=== PATIENT | female | born 1955 | race Caucasian/White ===

== ENCOUNTER → 2017-09-09 | Outpatient (CLI) | payer OTHER ==
--- NOTE | 2017-09-09 11:41 | XR ---
EXAMINATION TYPE: XR abdomen 2V DATE OF EXAM: 09/09/2017 COMPARISON: NONE HISTORY: Pain TECHNIQUE: Single supine KUB image of the abdomen is obtained FINDINGS: Small bowel demonstrates no evidence for dilatation or air fluid levels. Gas and fecal material is seen in non-distended colon. No convincing evidence for pneumoperitoneum. No unusual calcifications. The lung bases are clear. The osseous structures are intact. IMPRESSION: 1. Overall nonobstructive bowel gas pattern.
== END | disposition home or self-care (01) ==
LOC: RADXRYALE 11:15
PROVIDERS: ATTEND Physician Assistant Medical
DX: R31.9 Hematuria, unspecified (principal); M54.5 Low back pain
CPT/HCPCS: 74019

== ENCOUNTER 2017-11-11 15:46 | Inpatient (IN) | payer OTHER ==
[2017-11-12 14:14] LABS: Glucose,Whole Blood 58 mg/dL (75-99)
[2017-11-12 14:41] LABS: Glucose,Whole Blood 57 mg/dL (75-99)
[2017-11-12 15:20] LABS: Glucose,Whole Blood 64 mg/dL (75-99)
[2017-11-12] MEDS ORDERED: NALOXONE 0.4 MG/ML 1 ML VIAL IV PRN (15:53)
[2017-11-12] MEDS ORDERED: ONDANSETRON 4 MG/2 ML VIAL IVP PRN (15:53)
[2017-11-12] MEDS ORDERED: LACTATED RINGERS 1,000 ML IV ONE (15:53)
[2017-11-12] MEDS ORDERED: ACETAMINOPHEN TAB 325 MG TAB PO PRN (15:53)
[2017-11-12 16:01] LABS: Glucose,Whole Blood 95 mg/dL (75-99)
[2017-11-12] MEDS: KETOROLAC 30 MG/ML 1 ML VIAL IVP SCH ×2 (16:14→22:38)
[2017-11-12] MEDS ORDERED: Potassium Replacement Protocol 1 EACH MISC MISCELLANE PRN (16:49)
--- NOTE | 2017-11-12 17:18 | P.CNPUL ---
History of Present Illness Consult date: 11/12/17 Reason for consult: chest pain Chief complaint: trauma, rib fracture and hemopneumothorax History of present illness: A 62-year-old female patient was brought in via embolus from [place] for traumatic chest injury and flail chest. The patient was horseback riding and she fell and she sustained a blunt trauma to her chest. CAT scan of the chest abdomen and pelvis was done at [facility] and the visualized tracheal bronchial tree was within normal limits and there was evidence of pulmonary contusion in the right lower lobe and the right middle lobe and there was moderate to large right-sided pneumothorax with moderate to large right-sided pleural effusion possibly a hemothorax. There was some tenderness emphysema tracking along the right hemithorax. There was air distention of the esophagus. Comminuted fracture of the distal right clavicle. Comminuted fracture of the right scapula. Fracture of the posterior right second rib and fracture of the posterior and the lateral and anterior third rib , and fracture of the anterior fourth rib and the lateral fourth rib, and the fracture of the lateral right fifth rib in addition to fractures of the 678 and ninth and 10th and 11th rib. The 12th of was intact. Rest of the abdominal structures were within normal limits. The patient has a cholecystectomy. The patient had a lap band in place. CAT scan of the cervical spine showed no evidence of any fracture. And a computed tomography scan of the head was negative. The patient had a right-sided chest tube inserted and following that she had adequate expansion of the right lung and she was given adequate pain control and she was transferred to our hospital for further care. At this point in time the patient is comfortable on 2 L of oxygen by nasal cannula. Her pain control is through Dilaudid and no cord she is taking Tylenol in addition. She is pulling approximately 7 50 mL on incentive spirometer. Her pain is under good control and scale of 10 she is 2-3. No tachypnea. No tachycardia. No altered mentation. That hemoglobin has also stayed stable. Admission hemoglobin level was 13.4. She has normal renal function. Review of Systems Constitutional: Denies chills, Denies fever Eyes: denies blurred vision, denies bulging eye, denies decreased vision Ears: deny: decreased hearing, ear discharge, earache, tinnitus Ears, nose, mouth and throat: Denies headache, Denies sore throat Cardiovascular: Reports chest pain Respiratory: Reports dyspnea, Denies cough Gastrointestinal: Denies abdominal pain, Denies diarrhea, Denies nausea, Denies vomiting Genitourinary: Reports as per HPI Menstruation: Reports as per HPI Musculoskeletal: Denies myalgias Musculoskeletal: absent: ankle pain, ankle stiffness, ankle swelling Integumentary: Denies pruritus, Denies rash Neurological: Denies numbness, Denies weakness Psychiatric: Reports depression Endocrine: Denies fatigue, Denies weight change Hematologic/Lymphatic: Reports as per HPI Allergic/Immunologic: Reports as per HPI Past Medical History Past Medical History: Fibromyalgia Additional Past Medical History / Comment(s): Depression, fibromyalgia, obesity with a previous that bad and current BMI 33.1 History of Any Multi-Drug Resistant Organisms: None Reported Past Surgical History: Bariatric Surgery, Bladder Surgery, Cholecystectomy, Hernia Repair, Hysterectomy Additional Past Surgical History / Comment(s): bladder suspension, lap band, partial hysterectomy, lasik eye sx, abd hernia, upper dental implant Past Anesthesia/Blood Transfusion Reactions: No Reported Reaction Smoking Status: Never smoker - Past Family History Mother Family Medical History: Cancer Additional Family Medical History / Comment(s): breast cancer Father Family Medical History: No Reported History Additional Family Medical History / Comment(s): when pt was young from a mva Medications and Allergies Home Medications Medication Instructions Recorded Confirmed Type Gabapentin [Neurontin] 300 mg PO BID 11/12/17 11/12/17 History Meloxicam [Mobic] 15 mg PO DAILY 11/12/17 11/12/17 History Ranitidine HCl [Zantac] 75 mg PO DAILY 11/12/17 11/12/17 History Venlafaxine HCl [Effexor] 75 mg PO DAILY 11/12/17 11/12/17 History Allergies Allergy/AdvReac Type Severity Reaction Status Date / Time No Known Allergies Allergy Verified 11/12/17 14:47 Physical Exam Vitals: Vital Signs Temp Pulse Resp BP Pulse Ox 11/12/17 15:30 83 11 L 145/63 98 11/12/17 15:20 85 16 144/68 98 11/12/17 15:10 82 13 131/58 96 11/12/17 15:00 87 14 131/58 97 11/12/17 14:50 85 30 H 131/58 99 11/12/17 14:30 97.4 F L 84 24 131/58 96 Intake and Output 11/12/17 11/12/17 11/12/17 06:59 14:59 22:59 Intake Total 75 Output Total 20 Balance 55 Intake: IV 75 0.9 sodium chloride 75 Output: Chest Tube Drainage 20 Chest Tube Right Lateral 20 Chest Other: # Voids 1 # Bowel Movements 1 Weight 96 kg Gen. appearance, comfortable likely distress. Head exam was generally normal. There was no scleral icterus or corneal arcus. Mucous membranes were moist. Neck was supple and without jugular venous distension, thyromegaly, or carotid bruits. Carotids were easily palpable bilaterally. There was no adenopathy. Lungs sounds are diminished in the right compared to the left. The patient is a right-sided chest tube. There is obvious chest wall deformity on the right. 2 multiple rib fractures. The patient is a right-sided chest tube and the patient has 900 mL of serosanguineous bloody fluid accommodating in the Pleur- evac. Cardiac exam revealed the PMI to be normally situated and sized. The rhythm was regular and no extrasystoles were noted during several minutes of auscultation. The first and second heart sounds were normal and physiologic splitting of the second heart sound was noted. There were no murmurs, rubs, clicks, or gallops. Abdominal exam revealed normal bowel sounds. The abdomen was soft, non-tender, and without masses, organomegaly, or appreciable enlargement of the abdominal aorta. Examination of the extremities revealed easily palpable radial, femoral and pedal pulses. There was no cyanosis, clubbing or edema. The right approximately is placed in a sling. Examination of the skin revealed no evidence of significant rashes, suspicious appearing nevi or other concerning lesions. Neurologic the patient is awake and alert and there is no focal neurological deficit at this point in time. Results - Laboratory Findings Abnormal lab findings: Abnormal Labs 11/12/17 11/12/17 11/12/17 14:13 14:39 15:17 POC Glucose (mg/dL) 58 L 57 L 64 L Assessment and Plan Plan: Assessment 1 traumatic right chest injury post hoarse right accident 2 right sided hemopneumothorax status post right-sided chest tube insertion with successful expansion of the right lung and evacuation of the pleural fluid/ pneumothorax. There is no evidence of any air leak to the right-sided chest tube. There may be an underlying component of pulmonary contusion, right-sided. 3 multilevel right-sided rib fractures extending from the first of the 11th rib. Suspect a component of flail chest due to multilevel rib fractures. 4 right clavicular fracture, comminuted 5 right scapular fracture, comminuted 6 depression 7 fibromyalgia Plan Continue using incentive spirometer. Dilaudid for pain control. Tylenol for pain control. Keep the patient is of oxygen by nasal cannula. Keep the right- sided chest tube in place. Consult cardiothoracic surgery regarding the possibility of fixation of the ribs and the scapula. With the right upper extremity in sling and may need an orthopedic surgery evaluation regarding the right scapular fracture. Hemodynamically stable. We'll obtain blood work. We will continue daily chest x-rays. Lovenox for DVT prophylaxis. We'll continue to follow. Keep the patient ICU for now.
[2017-11-12 17:40] LABS: Glucose,Whole Blood 88 mg/dL (75-99)
[2017-11-12] MEDS: POTASSIUM CHLORIDE ER 20 MEQ TAB.ER PO SCH ×2 (18:30→19:45)
[2017-11-12] MEDS: DEXTROSE 5% IN WATER 1,000 ML IV SCH (18:30)
--- NOTE | 2017-11-12 18:51 | P.GSHP ---
History of Present Illness H&P Date: 11/12/17 Chief Complaint: Right flail chest This is a 62-year-old female who was transferred from [facility]. Patient fell off her horse. She sustained a significant traumatic right chest wall injury. The patient has multiple right rib fractures as well as a right clavicle and scapular fracture the patient also had a hemothorax. She had a chest tube placed at the outside hospital. She was transferred to [facility] to be closer to family. Patient has been stable. She is currently resting in bed. She states her pain is a 3 out of 10. She has a pleural VAC in place which has some bloody drainage. Past Medical History Past Medical History: Fibromyalgia Additional Past Medical History / Comment(s): Depression, fibromyalgia, obesity with a previous that bad and current BMI 33.1 History of Any Multi-Drug Resistant Organisms: None Reported Past Surgical History: Bariatric Surgery, Bladder Surgery, Cholecystectomy, Hernia Repair, Hysterectomy Additional Past Surgical History / Comment(s): bladder suspension, lap band, partial hysterectomy, lasik eye sx, abd hernia, upper dental implant Past Anesthesia/Blood Transfusion Reactions: No Reported Reaction Smoking Status: Never smoker - Past Family History Mother Family Medical History: Cancer Additional Family Medical History / Comment(s): breast cancer Father Family Medical History: No Reported History Additional Family Medical History / Comment(s): when pt was young from a mva Medications and Allergies Home Medications Medication Instructions Recorded Confirmed Type Gabapentin [Neurontin] 300 mg PO BID 11/12/17 11/12/17 History Meloxicam [Mobic] 15 mg PO DAILY 11/12/17 11/12/17 History Ranitidine HCl [Zantac] 75 mg PO DAILY 11/12/17 11/12/17 History Venlafaxine HCl [Effexor] 75 mg PO DAILY 11/12/17 11/12/17 History Allergies Allergy/AdvReac Type Severity Reaction Status Date / Time No Known Allergies Allergy Verified 11/12/17 14:47 Surgical - Exam Vital Signs Temp Pulse Resp BP Pulse Ox 97.4 F L 84 24 131/58 96 11/12/17 14:30 11/12/17 14:30 11/12/17 14:30 11/12/17 14:30 11/12/17 14:30 - General well developed, no distress - Eyes PERRL - ENT normal pinna - Neck no masses - Respiratory Right chest wall pain normal expansion - Cardiovascular Rhythm: regular - Abdomen Abdomen: soft, non tender - Neurologic normal coordination, normal sensation - Musculoskeletal Obvious right clavicle deformity. Results - Labs Abnormal Lab Results - Last 24 Hours (Table) 11/12/17 11/12/17 11/12/17 Range/Units 14:13 14:39 15:17 POC Glucose (mg/dL) 58 L 57 L 64 L (75-99) mg/dL Assessment and Plan Assessment: Status post fall from horse with traumatic right chest wall injury. Patient's multiple right rib fractures. She has a right clavicle and scapular fracture. We will have consultation from orthopedics and cardiothoracic surgery. Dr. Jay febrile illnesses been counseled as well. She'll be closely observed.
--- NOTE | 2017-11-12 19:15 | XR ---
EXAMINATION: XR chest 2V DATE AND TIME: 11/12/2017 6:21 PM ORDERING PROVIDER: Anastacio Mcdowell MD CLINICAL INDICATION: Multiple rib fractures TECHNIQUE: AP X-ray; RPO-rotated. COMPARISON: None. DESCRIPTION: Right chest tube is in place. No pneumothorax. There are decompressed the level right posterior lateral rib fractures, involving these the second th rough seventh ribs. There is a apex cephalad angulated fracture of the right mid clavicle. The sternoclavicular clavicula r and acromioclavicular joints are congruent. Scans bilateral pleural effusions noted bilaterally on the lateral view. Left lung is clear and well-expanded. Cardiac silhouette is mildly enlarged. Aortic silhouette is ectatic. Extrathoracic soft tissues are unremarkable. IMPRESSION: 1. MULTIFOCAL RIGHT RIB FRACTURES. 2. RIGHT MID CLAVICLE FRACTURE.
[2017-11-12 20:01] LABS: Glucose,Whole Blood 102 mg/dL (75-99)
[2017-11-12] MEDS: HYDROcodone/APAP 5-325MG 1 EACH TAB PO PRN (20:15)
[2017-11-12 20:16] LABS: HCT 35.6 % (34.0-46.0); HGB 11.6 gm/dL (11.4-16.0); MCH 29.5 pg (25.0-35.0); MCHC 32.6 g/dL (31.0-37.0); MCV 90.4 fL (80.0-100.0); Mean Platelet Volume 6.8; Platelet Count 147 k/uL (150-450); RBC 3.94 m/uL (3.80-5.40); RDW 14.1 % (11.5-15.5); WBC 10.3 k/uL (3.8-10.6)
[2017-11-12 20:25] LABS: Anion Gap 8 mmol/L; Blood Urea Nitrogen 23 mg/dL (7-17); Calcium 8.5 mg/dL (8.4-10.2); Carbon Dioxide 22 mmol/L (22-30); Chloride 107 mmol/L (98-107); Glucose 102 mg/dL (74-99); Potassium 4.2 mmol/L (3.5-5.1); Sodium 137 mmol/L (137-145)
[2017-11-12] MEDS: DOCUSATE 100 MG CAP PO SCH (20:30)
[2017-11-12 23:41] LABS: Glucose,Whole Blood 126 mg/dL (75-99)
[2017-11-13] MEDS: HYDROcodone/APAP 5-325MG 1 EACH TAB PO PRN ×2 (01:39→07:36)
[2017-11-13 04:22] LABS: Glucose,Whole Blood 106 mg/dL (75-99)
[2017-11-13] MEDS: KETOROLAC 30 MG/ML 1 ML VIAL IVP SCH ×4 (04:38→21:52)
[2017-11-13 05:10] LABS: Basophils % (A) 0 %; Eosinophils # (A) 0.1 k/uL (0-0.7); Eosinophils % (A) 1 %; HGB 10.8 gm/dL (11.4-16.0); Lymphocytes # (A) 0.8 k/uL (1.0-4.8); Lymphocytes % (A) 13 %; MCH 29.3 pg (25.0-35.0); MCHC 33.8 g/dL (31.0-37.0); MCV 86.5 fL (80.0-100.0); Mean Platelet Volume 6.9; Monocytes # (A) 0.3 k/uL (0-1.0); Monocytes % (A) 4 %; Neutrophils # (A) 5.2 k/uL (1.3-7.7); Neutrophils % (A) 81 %; Platelet Count 170 k/uL (150-450); RBC 3.71 m/uL (3.80-5.40); RDW 14.1 % (11.5-15.5); WBC 6.4 k/uL (3.8-10.6)
[2017-11-13 05:17] LABS: ALT 49 U/L (9-52); AST 40 U/L (14-36); Albumin 2.6 g/dL (3.5-5.0); Alkaline Phosphatase 70 U/L (38-126); Anion Gap 4 mmol/L; Blood Urea Nitrogen 24 mg/dL (7-17); Calcium 8.1 mg/dL (8.4-10.2); Carbon Dioxide 23 mmol/L (22-30); Chloride 107 mmol/L (98-107); Glucose 99 mg/dL (74-99); Magnesium 1.9 mg/dL (1.6-2.3); Phosphorus 2.5 mg/dL (2.5-4.5); Sodium 134 mmol/L (137-145); Total Bilirubin 0.3 mg/dL (0.2-1.3); Total Protein 4.7 g/dL (6.3-8.2)
[2017-11-13] MEDS ORDERED: Magnesium Replacement Protocol 1 EACH MISC MISCELLANE PRN (06:59)
--- NOTE | 2017-11-13 07:30 | XR ---
EXAMINATION TYPE: XR chest 1V DATE OF EXAM: 11/13/2017 COMPARISON: 11/12/2017 INDICATION: Pneumothorax, hemothorax TECHNIQUE: Single frontal view of the chest is obtained. FINDINGS: The heart size is normal. The pulmonary vasculature is normal. There is blunting the left costophrenic angle. Right-sided chest tube is present. No pneumothorax is evident. Multiple Right-sided rib fractures are evident. IMPRESSION: 1. Right-sided chest tube is in position. Pneumothorax is not evident at this time. 2. Minimal fluid within the left costophrenic angle. 3. Multiple right-sided rib fractures.
[2017-11-13] MEDS: ENOXAPARIN 40 MG/0.4 ML SYRINGE SQ SCH (07:36)
[2017-11-13] MEDS: PANTOPRAZOLE 40 MG TABLET PO SCH (07:37)
[2017-11-13] MEDS: DOCUSATE 100 MG CAP PO SCH (07:37)
[2017-11-13] MEDS: SODIUM CHLORIDE 0.9% 1,000 ML IV SCH ×2 (08:00→22:00)
[2017-11-13 08:04] LABS: Glucose,Whole Blood 261 mg/dL (75-99)
[2017-11-13] MEDS: DEXTROSE 5% IN WATER 1,000 ML IV SCH (08:08)
[2017-11-13] MEDS: HYDROmorphone 1 MG/ML 1 ML SYRINGE IVP PRN ×3 (08:37→19:22)
--- NOTE | 2017-11-13 08:59 | P.CNOR ---
History of Present Illness - HPI Consult date: 11/13/17 Consult reason: fracture (Clavicle, scapula, multiple ribs right side) History of present illness: his is a 62-year-old female who was transferred from [facility] last evening after a fall from her horse. She states that the horse got spooked and took off running which center flying off the horse. She sustained a significant traumatic right chest wall injury. The patient has multiple right rib fractures as well as a right clavicle and scapular fracture the patient also had a hemothorax. She had a chest tube placed at the outside hospital. She was transferred to [facility] to be closer to family. Patient has been stable. She is currently resting in bed in the ICU. She states her pain is 8/ 10 at this time. She has a pleural VAC in place which has some bloody drainage. She is afebrile. Past Medical History Past Medical History: Fibromyalgia Additional Past Medical History / Comment(s): Depression, fibromyalgia, obesity with a previous that bad and current BMI 33.1 History of Any Multi-Drug Resistant Organisms: None Reported Past Surgical History: Bariatric Surgery, Bladder Surgery, Cholecystectomy, Hernia Repair, Hysterectomy Additional Past Surgical History / Comment(s): bladder suspension, lap band, partial hysterectomy, lasik eye sx, abd hernia, upper dental implant Past Anesthesia/Blood Transfusion Reactions: No Reported Reaction Smoking Status: Never smoker - Past Family History Mother Family Medical History: Cancer Additional Family Medical History / Comment(s): breast cancer Father Family Medical History: No Reported History Additional Family Medical History / Comment(s): when pt was young from a mva Medications and Allergies Home Medications Medication Instructions Recorded Confirmed Type Gabapentin [Neurontin] 300 mg PO BID 11/12/17 11/12/17 History Meloxicam [Mobic] 15 mg PO DAILY 11/12/17 11/12/17 History Ranitidine HCl [Zantac] 75 mg PO DAILY 11/12/17 11/12/17 History Venlafaxine HCl [Effexor] 75 mg PO DAILY 11/12/17 11/12/17 History Allergies Allergy/AdvReac Type Severity Reaction Status Date / Time No Known Allergies Allergy Verified 11/12/17 14:47 Physical Examination This is a pleasant 62-year-old female in no acute distress. She is alert and oriented 3. An arm sling is in place to the right arm. Chest tube is in place in the right chest wall. Exam of the head neck reveal no obvious deformity. She has full cervical spine motion without difficulty or pain. There is no pain to palpation about the cervical spine or paraspinal musculature. Exam of the chest reveals ecchymosis about the right anterior shoulder. There is pain on palpation about the mid clavicle. There is limited motion of the shoulder secondary to pain. There is pain on palpation about the posterior right shoulder about the scapula as well as the right side of the chest wall. Exam the upper extremities reveals a sling in place to the right arm. She has full wrist and finger motion bilaterally. No pain with palpation about the elbows, wrists, hands or fingers. Radial pulses are +2/4 bilaterally. Neurovascular status to the upper extremities is intact. Exam of the pelvis reveals no obvious deformity. There is no pain with compression of the pelvis. Exam of the lower extremities reveals no obvious deformity. She is able to lift each leg off the bed independently. There is mild pain with lifting the right leg off the bed. There is no pain with logroll to either hip. There is no pain with flexion of the hip and knee and internal/external rotation of the hips bilaterally. No pain on palpation about the femur, knee, lower leg, foot or ankle bilaterally. She has full foot and ankle motion bilaterally. Neurovascular status to the lower extremities is intact. Results Outside films from [facility] are reviewed. Shoulder x-ray reveals comminuted midshaft clavicle fracture with minimal displacement. Proximal humerus is intact. Multiple right-sided rib fractures noted on chest x-ray. Pneumothorax noted on chest x-ray. CT of the chest abdomen and pelvis reveal multiple right-sided rib fractures. There is a pneumothorax/pneumothorax noted. There is a comminuted scapular fracture noted on CT. The comminuted clavicle fracture is noted as well. - Labs Labs: Abnormal Lab Results - Last 24 Hours (Table) 11/12/17 11/12/17 11/12/17 Range/Units 14:13 14:39 15:17 RBC (3.80-5.40) m/uL Hgb (11.4-16.0) gm/dL Hct (34.0-46.0) % Plt Count (150-450) k/uL Lymphocytes # (1.0-4.8) k/uL Sodium (137-145) mmol/L BUN (7-17) mg/dL Creatinine (0.52-1.04) mg/dL Glucose (74-99) mg/dL POC Glucose (mg/dL) 58 L 57 L 64 L (75-99) mg/dL Calcium (8.4-10.2) mg/dL AST (14-36) U/L Total Protein (6.3-8.2) g/dL Albumin (3.5-5.0) g/dL 11/12/17 11/12/17 11/12/17 Range/Units 19:53 19:53 20:00 RBC (3.80-5.40) m/uL Hgb (11.4-16.0) gm/dL Hct (34.0-46.0) % Plt Count 147 L (150-450) k/uL Lymphocytes # (1.0-4.8) k/uL Sodium (137-145) mmol/L BUN 23 H (7-17) mg/dL Creatinine (0.52-1.04) mg/dL Glucose 102 H (74-99) mg/dL POC Glucose (mg/dL) 102 H (75-99) mg/dL Calcium (8.4-10.2) mg/dL AST (14-36) U/L Total Protein (6.3-8.2) g/dL Albumin (3.5-5.0) g/dL 11/12/17 11/13/17 11/13/17 Range/Units 23:38 04:21 04:54 RBC 3.71 L (3.80-5.40) m/uL Hgb 10.8 L (11.4-16.0) gm/dL Hct 32.0 L (34.0-46.0) % Plt Count (150-450) k/uL Lymphocytes # 0.8 L (1.0-4.8) k/uL Sodium (137-145) mmol/L BUN (7-17) mg/dL Creatinine (0.52-1.04) mg/dL Glucose (74-99) mg/dL POC Glucose (mg/dL) 126 H 106 H (75-99) mg/dL Calcium (8.4-10.2) mg/dL AST (14-36) U/L Total Protein (6.3-8.2) g/dL Albumin (3.5-5.0) g/dL 11/13/17 11/13/17 Range/Units 04:54 07:47 RBC (3.80-5.40) m/uL Hgb (11.4-16.0) gm/dL Hct (34.0-46.0) % Plt Count (150-450) k/uL Lymphocytes # (1.0-4.8) k/uL Sodium 134 L (137-145) mmol/L BUN 24 H (7-17) mg/dL Creatinine 0.50 L (0.52-1.04) mg/dL Glucose (74-99) mg/dL POC Glucose (mg/dL) 261 H (75-99) mg/dL Calcium 8.1 L (8.4-10.2) mg/dL AST 40 H (14-36) U/L Total Protein 4.7 L (6.3-8.2) g/dL Albumin 2.6 L (3.5-5.0) g/dL H & H 11/12/17 11/13/17 Range/Units 19:53 04:54 Hgb 11.6 10.8 L (11.4-16.0) gm/dL Hct 35.6 32.0 L (34.0-46.0) % Result Diagrams: 11/13/17 04:54 11/13/17 04:54 Assessment and Plan (1) Closed fracture of right clavicle Current Visit: Yes Status: Acute Code(s): S42.001A - FRACTURE OF UNSP PART OF RIGHT CLAVICLE, INIT FOR CLOS FX SNOMED Code(s): 02273343 (2) Flail chest Current Visit: Yes Status: Acute Code(s): S22.5XXA - FLAIL CHEST, INITIAL ENCOUNTER FOR CLOSED FRACTURE SNOMED Code(s): 18183644 (3) Closed right scapular fracture Current Visit: Yes Status: Acute Code(s): S42.101A - FRACTURE OF UNSP PART OF SCAPULA, RIGHT SHOULDER, INIT SNOMED Code(s): 51005375 (4) Multiple closed fractures of ribs of right side Current Visit: Yes Status: Acute Code(s): S22.41XA - MULTIPLE FRACTURES OF RIBS, RIGHT SIDE, INIT FOR CLOS FX SNOMED Code(s): 80175941 (5) Hemothorax on right Current Visit: Yes Status: Acute Code(s): J94.2 - HEMOTHORAX SNOMED Code(s ): 79834090 Plan: The clinical and radiographic findings are discussed with the patient and her nurse. She will remain in the sling this time we will continue to follow with serial x-rays of the clavicle. I will discuss the case with Dr. Radford. We may possibly need further imaging of the scapula fracture. We will continue to follow.
--- NOTE | 2017-11-13 09:00 | P.PN ---
Subjective Progress Note Date: 11/13/17 Principal diagnosis: Traumatic right chest injury, following fall from a horse, right-sided hemopneumothorax, multiple right-sided rib fractures, right clavicular and right scapular fracture A 62-year-old female patient was brought in via embolus from [place] for traumatic chest injury and flail chest. The patient was horseback riding and she fell and she sustained a blunt trauma to her chest. CAT scan of the chest abdomen and pelvis was done at [facility] and the visualized tracheal bronchial tree was within normal limits and there was evidence of pulmonary contusion in the right lower lobe and the right middle lobe and there was moderate to large right-sided pneumothorax with moderate to large right-sided pleural effusion possibly a hemothorax. There was some tenderness emphysema tracking along the right hemithorax. There was air distention of the esophagus. Comminuted fracture of the distal right clavicle. Comminuted fracture of the right scapula. Fracture of the posterior right second rib and fracture of the posterior and the lateral and anterior third rib , and fracture of the anterior fourth rib and the lateral fourth rib, and the fracture of the lateral right fifth rib in addition to fractures of the 678 and ninth and 10th and 11th rib. The 12th of was intact. Rest of the abdominal structures were within normal limits. The patient has a cholecystectomy. The patient had a lap band in place. CAT scan of the cervical spine showed no evidence of any fracture. And a computed tomography scan of the head was negative. The patient had a right-sided chest tube inserted and following that she had adequate expansion of the right lung and she was given adequate pain control and she was transferred to our hospital for further care. At this point in time the patient is comfortable on 2 L of oxygen by nasal cannula. Her pain control is through Dilaudid and no cord she is taking Tylenol in addition. She is pulling approximately 7 50 mL on incentive spirometer. Her pain is under good control and scale of 10 she is 2-3. No tachypnea. No tachycardia. No altered mentation. That hemoglobin has also stayed stable. Admission hemoglobin level was 13.4. She has normal renal function. On 11/13/2017 patient seen in follow-up in the intensive care unit. Awake alert , and the pain in her right shoulder and the right side of the chest is more bothersome today. Currently she is on [place] 5 mg 2 tablets every 6 hours as needed, Toradol, and Dilaudid for breakthrough pain. She has not been asking for the Dilaudid on the regular basis, patient was encouraged to not wait too long for pain medications. Otherwise she remains hemodynamically stable, she is afebrile, room air pulse ox is 95%, lung sounds are diminished, patient is taken shallow breaths. Right chest tube site is clean dry and intact, has been 80 mL of serosanguineous drainage from its in the last 24 hours, no air leak noted. Today's chest x-ray has been reviewed,it shows a right-sided chest tube in proper position, no pneumothorax, minimal fluid within the left costophrenic angle, and multiple right-sided rib fractures. Orthopedic surgery has been consulted in regards to the right scapular and clavicular fracture. Right shoulder is noted to be more bruised on today's exam. Distal pulses are intact. Today's labs were noted, WBC of 6.4, hemoglobin is 10.8, sodium is 134 , the rest of her electrolytes and renal profile are relatively unremarkable. Able to achieve 750 and her incentive spirometer today. Objective - Vital Signs Vital signs: Vital Signs Temp 98.8 F 11/13/17 08:00 Pulse 82 11/13/17 08:00 Resp 20 11/13/17 08:00 BP 125/58 11/13/17 08:00 Pulse Ox 95 11/13/17 08:00 Intake & Output 11/12/17 11/13/17 11/13/17 18:59 06:59 18:59 Intake Total 375 825 150 Output Total 60 93 80 Balance 315 732 70 Weight 96 kg 99.2 kg Intake: IV 75 525 150 0.9 sodium chloride 75 Dextrose 5% in Water 1, 525 150 000 ml @ 75 mls/hr IV . [id number] RACHEL Rx#:[id number] Intake, IV Titration 300 300 Amount Dextrose 5% in Water 1, 300 300 000 ml @ 75 mls/hr IV . [id number] RACHEL Rx#:[id number] Output: Chest Tube Drainage 60 90 80 Chest Tube Right Lateral 60 90 80 Chest Stool 3 Other: Voiding Method Bedside Commode Bedside Commode Bedside Commode # Voids 1 1 # Bowel Movements 1 - Exam Gen. appearance, comfortable likely distress. Head exam was generally normal. There was no scleral icterus or corneal arcus. Mucous membranes were moist. Neck was supple and without jugular venous distension, thyromegaly, or carotid bruits. Carotids were easily palpable bilaterally. There was no adenopathy. Lungs sounds are diminished in the right compared to the left. The patient is a right-sided chest tube. There is obvious chest wall deformity on the right. 2 multiple rib fractures. The patient is a right-sided chest tube and the patient has 980 mL of serosanguineous bloody fluid accommodating in the Pleur- evac. Cardiac exam revealed the PMI to be normally situated and sized. The rhythm was regular and no extrasystoles were noted during several minutes of auscultation. The first and second heart sounds were normal and physiologic splitting of the second heart sound was noted. There were no murmurs, rubs, clicks, or gallops. Abdominal exam revealed normal bowel sounds. The abdomen was soft, non-tender, and without masses, organomegaly, or appreciable enlargement of the abdominal aorta. Examination of the extremities revealed easily palpable radial, femoral and pedal pulses. There was no cyanosis, clubbing or edema. The right approximately is placed in a sling. Examination of the skin revealed no evidence of significant rashes, suspicious appearing nevi or other concerning lesions. Bruising noted of the right shoulder Neurologic the patient is awake and alert and there is no focal neurological deficit at this point in time. - Labs CBC & Chem 7: 11/13/17 04:54 11/13/17 04:54 Labs: Abnormal Lab Results - Last 24 Hours (Table) 11/12/17 11/12/17 11/12/17 Range/Units 14:13 14:39 15:17 RBC (3.80-5.40) m/uL Hgb (11.4-16.0) gm/dL Hct (34.0-46.0) % Plt Count (150-450) k/uL Lymphocytes # (1.0-4.8) k/uL Sodium (137-145) mmol/L BUN (7-17) mg/dL Creatinine (0.52-1.04) mg/dL Glucose (74-99) mg/dL POC Glucose (mg/dL) 58 L 57 L 64 L (75-99) mg/dL Calcium (8.4-10.2) mg/dL AST (14-36) U/L Total Protein (6.3-8.2) g/dL Albumin (3.5-5.0) g/dL 11/12/17 11/12/17 11/12/17 Range/Units 19:53 19:53 20:00 RBC (3.80-5.40) m/uL Hgb (11.4-16.0) gm/dL Hct (34.0-46.0) % Plt Count 147 L (150-450) k/uL Lymphocytes # (1.0-4.8) k/uL Sodium (137-145) mmol/L BUN 23 H (7-17) mg/dL Creatinine (0.52-1.04) mg/dL Glucose 102 H (74-99) mg/dL POC Glucose (mg/dL) 102 H (75-99) mg/dL Calcium (8.4-10.2) mg/dL AST (14-36) U/L Total Protein (6.3-8.2) g/dL Albumin (3.5-5.0) g/dL 11/12/17 11/13/17 11/13/17 Range/Units 23:38 04:21 04:54 RBC 3.71 L (3.80-5.40) m/uL Hgb 10.8 L (11.4-16.0) gm/dL Hct 32.0 L (34.0-46.0) % Plt Count (150-450) k/uL Lymphocytes # 0.8 L (1.0-4.8) k/uL Sodium (137-145) mmol/L BUN (7-17) mg/dL Creatinine (0.52-1.04) mg/dL Glucose (74-99) mg/dL POC Glucose (mg/dL) 126 H 106 H (75-99) mg/dL Calcium (8.4-10.2) mg/dL AST (14-36) U/L Total Protein (6.3-8.2) g/dL Albumin (3.5-5.0) g/dL 11/13/17 11/13/17 Range/Units 04:54 07:47 RBC (3.80-5.40) m/uL Hgb (11.4-16.0) gm/dL Hct (34.0-46.0) % Plt Count (150-450) k/uL Lymphocytes # (1.0-4.8) k/uL Sodium 134 L (137-145) mmol/L BUN 24 H (7-17) mg/dL Creatinine 0.50 L (0.52-1.04) mg/dL Glucose (74-99) mg/dL POC Glucose (mg/dL) 261 H (75-99) mg/dL Calcium 8.1 L (8.4-10.2) mg/dL AST 40 H (14-36) U/L Total Protein 4.7 L (6.3-8.2) g/dL Albumin 2.6 L (3.5-5.0) g/dL Assessment and Plan Plan: Assessment: 1 traumatic right chest injury post hoarse right accident 2 right sided hemopneumothorax status post right-sided chest tube insertion with successful expansion of the right lung and evacuation of the pleural fluid/ pneumothorax. There is no evidence of any air leak to the right-sided chest tube. There may be an underlying component of pulmonary contusion, right-sided. 3 multilevel right-sided rib fractures extending from the first of the 11th rib. Suspect a component of flail chest due to multilevel rib fractures. 4 right clavicular fracture, comminuted 5 right scapular fracture, comminuted 6 depression 7 fibromyalgia Plan Continue encouraging pulmonary toileting, deep breathing and coughing, incentive spirometry use. Maintain pain control, patient was Encouraged not to wait too long for pain medications. Pain is a bit more bothersome today. His chest x-ray has been reviewed, and the right lung has reexpanded, no pneumothorax. Patient is awaiting to be evaluated by orthopedic surgery in regards of the right scapular and clavicular fracture. Continue GI and DVT prophylaxis, and taking daily chest x-rays, CT surgery has been consulted. I performed a history & physical examination of the patient and discussed their management with my nurse practitioner, Briseyda Hernandez. I reviewed the nurse practitioner's note and agree with the documented findings and plan of care. Lung sounds are positive for diminished breath sounds more so on the right. The findings and the impression was discussed with the patient. I attest to the documentation by the nurse practitioner. Time with Patient: Greater than 30
[2017-11-13] MEDS ORDERED: DIPHENOX-ATROP 2.5-0.025 MG 1 EACH TAB PO PRN (10:02)
[2017-11-13] MEDS: MAGNESIUM SULFATE-D5W PMX 1 GM in DEXTROSE/WATER 1 100ML.BAG IVPB SCH ×2 (11:04→14:57)
[2017-11-13 11:30] LABS: Appearance,Urine Cloudy (Clear); Bacteria,Urine Many /hpf; Bilirubin,Urine Negative (Negative); Blood,Urine Moderate (Negative); Color,Urine Yellow; Glucose,Urine (UA) Negative (Negative); Ketones,Urine Negative (Negative); Leukocyte Esterase,Urine Moderate (Negative); Mucus,Urine Rare /hpf; Nitrite,Urine Negative (Negative); PH, Urine 5.5 (5.0-8.0); Protein,Urine Negative (Negative); RBC,Urine 7 /hpf (0-5); Specific Gravity,Urine 1.012 (1.001-1.035); Squamous Epithelial Cell,Urine 2 /hpf (0-4); Urobilinogen,Urine <2.0 mg/dL (<2.0)
--- NOTE | 2017-11-13 11:56 | CT ---
EXAMINATION TYPE: CT chest wo con DATE OF EXAM: 11/13/2017 COMPARISON: Correlation radiograph 11/13/2017 HISTORY: 62-year-old female Right sided chest and shoulder pain. Rib fractures. TECHNIQUE: Contiguous axial scanning of the chest without IV contrast. Coronal and sagittal reconstru ctions performed. CT DLP: 492.7 mGycm Automated exposure control for dose reduction was used. FINDINGS: Comminuted fracture of the distal third right clavicular shaft with 2 shafts width of posterior displ acement of the distal fracture fragment. Multiple right-sided rib fracture deformities are present with varying degrees of angulation and disp lacement. Fractures involve the second through ninth ribs. The eighth and ninth rib fractures are loc ated posteriorly and are mildly comminuted. The fourth, fifth, and sixth rib fractures especially mor e significantly displaced and angulated resulting in indentation of the thoracic wall. A chest tube is present entering the posterolateral sixth intercostal space and is apically directed coursing along the major fissure. Comminuted fracture of the scapular body with posterior apex angulation inferiorly. Prominent vertica l component extending from the superior aspect of the medial margin and extending down to the inferio r angle. Associated soft tissue swelling. Subcutaneous emphysema along the right thoracic wall. Trace right pleural effusion. No pneumothorax. Focal consolidation in areas of the right lower lobe suggests pulmonary contusion and atelectasis. Mo re strandy atelectasis peripheral left lower lobe. Heart upper limits of normal in size without pericardial effusion. Aorta normal caliber with conventional arch vessel branching anatomy. Prominent fluid within the esop hagus. There is a moderate-sized hilar hernia in the left band in place. No thoracic lymphadenopathy. Upper abdomen shows lap band in place. Fluid within the moderate hiatal hernia and mid to lower esoph julita. IMPRESSION: 1. FRACTURES OF THE right second through ninth ribs with varying displacement and angulation. Especia lly at the fourth, fifth, and 6 rib fractures, there is inward displacement and angulation causing th oracic wall indentation and deformity. 2. Right-sided chest tube entering the sixth intercostal space. It courses along the major fissure. N o pneumothorax. 3. Trace right effusion with patchy areas of consolidation in the right lower lobe suggesting atelect asis and pulmonary contusion. 4. Displaced distal third right clavicular shaft fracture with mild comminution. 5. Additional scapular body fracture with posterior apex angulation inferiorly. Shoulder reported sep arately. 6. LAP-BAND with a moderate sized hiatal hernia and fluid extending up into the esophagus. Correlate for gastroesophageal reflux.
[2017-11-13] MEDS: HYDROcodone/APAP 5-325MG 1 EACH TAB PO SCH ×3 (12:03→21:50)
--- NOTE | 2017-11-13 12:12 | CT ---
EXAMINATION TYPE: CT shoulder RT wo con DATE OF EXAM: 11/13/2017 COMPARISON: None HISTORY: 62 year-old female right sided chest and shoulder pain. TECHNIQUE: Contiguous axial scanning of the right shoulder without IV contrast. Coronal and sagittal reconstructions performed. 3 view reconstructions generated on a dedicated independent workstation. CT DLP: 492.7 mGycm Automated exposure control for dose reduction was used. FINDINGS: Chest reported separately. AC joint is intact but there is a comminuted fracture of the distal third clavicular shaft showing 2 shafts width of posterior displacement. Mildly comminuted fracture of the scapular body. Major fracture involves the medial scapular body ext ending from just below the spine of the scapula measuring 7.6 cm craniocaudal by 4.1 cm wide. A secon d major fracture fragment involves the inferior angle measuring approximately 3.6 cm craniocaudal and 3.5 cm wide. The glenohumeral joint itself shows moderate degenerative spurring with suggestion of some loose bodi es but no evidence for acute fracture or dislocation. Overall preserved bulk of the rotator cuff musculature. IMPRESSION: 1. COMMINUTED FRACTURE OF THE DISTAL THIRD CLAVICULAR SHAFT WITH 2 SHAFT'S WIDTH OF POSTERIOR DISPLAC EMENT. 2. COMMINUTED FRACTURE OF THE SCAPULAR BODY. A MAJOR FRACTURE FRAGMENT INVOLVES THE MEDIAL SCAPULAR B TONE MEASURING 7.6 X 4.1 CM AND IS LOCATED BELOW THE SPINE OF THE SCAPULA AND EXTENDS INFERIORLY. A SE COND MAJOR FRACTURE FRAGMENT INVOLVES THE INFERIOR ANGLE OF THE SCAPULA AND MEASURES 2.6 X 3.5 CM. TH E 3-D RECONSTRUCTION SHOWS THESE WELL. 3. MODERATE GLENOHUMERAL JOINT OA. 4. CHEST WITH MULTIPLE RIGHT-SIDED RIB FRACTURES AND CHEST TUBE REPORTED SEPARATELY.
--- NOTE | 2017-11-13 12:52 | P.PN ---
Progress Note - Text Progress Note Date: 11/13/17 The patient's resting comfortably in her bed. Her chest tube was removed this morning. On exam her vital signs are stable. Her abdomen soft. Status post fall from horse with multiple right rib fractures right scapular fracture right colon were pulled fracture. Patient's pulmonary status is improving. She'll we will slightly discharged to the floor today.
--- NOTE | 2017-11-13 13:43 | P.GSCN ---
History of Present Illness Consult date: 11/13/17 Reason for Consult: Multiple rib fractures right, right pneumothorax/hemothorax, right pleural chest tube management. Requesting physician: Anastacio Mcdowell History of present illness: This is a 62-year-old female patient who was transferred from [facility] yesterday after experiencing a fall from her horse. She has a past medical history significant for fibromyalgia, depression, family history of early onset coronary artery disease with her brother having a myocardial infarction at age 30 and obesity. On 11/09/2017 wall riding her horse with a group of friends her horse was apparently spooked and she was thrown from her horse. She sustained a traumatic chest injury with multiple fractured ribs to her right chest, fractured right clavicle and scapula. After she was thrown from the horse she complains of severe right-sided chest pain and shortness of breath. She reports she may have lost consciousness momentarily although denied any nausea, vomiting, or loss of bowel or bladder function. She was transported a hospital in [facility] via EMS. A right chest tube was placed for a right sided hemopneumothorax at the outside hospital. Subsequently she was transferred to [facility] to be closer to her friends and family. A consult was placed for cardiothoracic surgery due to her multiple rib fractures and right pleural chest tube. Review of Systems A 14 point review of system was completed and was negative except as mentioned in the HPI. Past Medical History Past Medical History: Fibromyalgia Additional Past Medical History / Comment(s): Depression, fibromyalgia, obesity with a previous that bad and current BMI 33.1 History of Any Multi-Drug Resistant Organisms: None Reported Past Surgical History: Bariatric Surgery, Bladder Surgery, Cholecystectomy, Hernia Repair, Hysterectomy Additional Past Surgical History / Comment(s): bladder suspension, lap band, partial hysterectomy, lasik eye sx, abd hernia, upper dental implant Past Anesthesia/Blood Transfusion Reactions: No Reported Reaction Past Psychological History: Depression Smoking Status: Never smoker Past Alcohol Use History: Occasional Past Drug Use History: None Reported - Past Family History Mother Family Medical History: Cancer (Breast cancer) Additional Family Medical History / Comment(s): breast cancer Father Family Medical History: No Reported History Additional Family Medical History / Comment(s): when pt was young from a mva Brother(s) Family Medical History: Myocardial Infarction ([place]) (Her brother had a myocardial infarction at age 30.) Medications and Allergies Home Medications Medication Instructions Recorded Confirmed Type Gabapentin [Neurontin] 300 mg PO BID 11/12/17 11/12/17 History Meloxicam [Mobic] 15 mg PO DAILY 11/12/17 11/12/17 History Ranitidine HCl [Zantac] 75 mg PO DAILY 11/12/17 11/12/17 History Venlafaxine HCl [Effexor] 75 mg PO DAILY 11/12/17 11/12/17 History Allergies Allergy/AdvReac Type Severity Reaction Status Date / Time No Known Allergies Allergy Verified 11/12/17 14:47 Surgical - Exam Vital Signs Temp Pulse Resp BP Pulse Ox 97.4 F L 84 24 131/58 96 11/12/17 14:30 11/12/17 14:30 11/12/17 14:30 11/12/17 14:30 11/12/17 14:30 - General well developed, well nourished, no distress, moderate pain (Right chest), obese - Eyes PERRL, normal ocular movement - ENT normal pinna, normal nares, normal mucosa, no hearing loss, no congestion - Neck No lymphadenopathy, neck is supple. no masses, no bruits, trachea midline, no venous distension - Respiratory Lung sounds are essentially clear throughout, diminished to her right lower lobe. Respirations are symmetrical and nonlabored. Right pleural chest tube in place to low continuous wall suction. No air leak is present. Draining thin serosanguineous drainage, 150 mL output in the last 24 hours. Oxygen saturations 95% on room air. She is achieving 750 mL on her incentive spirometry. - Cardiovascular Regular rhythm and rate. S1 and S2 present, negative for S3, gallop or murmur. Bedside telemetry showing normal sinus rhythm heart rate 79. No edema present. Knee-high HEATH hose and sequential compression devices in place to bilateral lower extremities. - Abdomen Abdomen is soft, nontender nondistended. Active bowel sounds all 4 abdominal quadrants. No organomegaly. No guarding or rigidity. Loose bowel movements. - Genitourinary Deferred - Rectum Deferred - Integumentary Ecchymotic area to her right clavicular area. No rash or abnormal pigmentation. no rash, no growths, no abnormal pigmentation - Neurologic normal coordination, normal sensation - Musculoskeletal normal gait, normal posture - Psychiatric oriented to time, oriented to person, oriented to place, speech is normal, memory intact Results - Labs 11/13/17 04:54 11/13/17 04:54 Abnormal Lab Results - Last 24 Hours (Table) 11/12/17 11/12/17 11/12/17 Range/Units 14:13 14:39 15:17 RBC (3.80-5.40) m/uL Hgb (11.4-16.0) gm/dL Hct (34.0-46.0) % Plt Count (150-450) k/uL Lymphocytes # (1.0-4.8) k/uL Sodium (137-145) mmol/L BUN (7-17) mg/dL Creatinine (0.52-1.04) mg/dL Glucose (74-99) mg/dL POC Glucose (mg/dL) 58 L 57 L 64 L (75-99) mg/dL Calcium (8.4-10.2) mg/dL AST (14-36) U/L Total Protein (6.3-8.2) g/dL Albumin (3.5-5.0) g/dL Urine Appearance (Clear) Urine Blood (Negative) Ur Leukocyte Esterase (Negative) Urine RBC (0-5) /hpf Urine Bacteria (None) /hpf Urine Mucus (None) /hpf 11/12/17 11/12/17 11/12/17 Range/Units 19:53 19:53 20:00 RBC (3.80-5.40) m/uL Hgb (11.4-16.0) gm/dL Hct (34.0-46.0) % Plt Count 147 L (150-450) k/uL Lymphocytes # (1.0-4.8) k/uL Sodium (137-145) mmol/L BUN 23 H (7-17) mg/dL Creatinine (0.52-1.04) mg/dL Glucose 102 H (74-99) mg/dL POC Glucose (mg/dL) 102 H (75-99) mg/dL Calcium (8.4-10.2) mg/dL AST (14-36) U/L Total Protein (6.3-8.2) g/dL Albumin (3.5-5.0) g/dL Urine Appearance (Clear) Urine Blood (Negative) Ur Leukocyte Esterase (Negative) Urine RBC (0-5) /hpf Urine Bacteria (None) /hpf Urine Mucus (None) /hpf 11/12/17 11/13/17 11/13/17 Range/Units 23:38 04:21 04:54 RBC 3.71 L (3.80-5.40) m/uL Hgb 10.8 L (11.4-16.0) gm/dL Hct 32.0 L (34.0-46.0) % Plt Count (150-450) k/uL Lymphocytes # 0.8 L (1.0-4.8) k/uL Sodium (137-145) mmol/L BUN (7-17) mg/dL Creatinine (0.52-1.04) mg/dL Glucose (74-99) mg/dL POC Glucose (mg/dL) 126 H 106 H (75-99) mg/dL Calcium (8.4-10.2) mg/dL AST (14-36) U/L Total Protein (6.3-8.2) g/dL Albumin (3.5-5.0) g/dL Urine Appearance (Clear) Urine Blood (Negative) Ur Leukocyte Esterase (Negative) Urine RBC (0-5) /hpf Urine Bacteria (None) /hpf Urine Mucus (None) /hpf 11/13/17 11/13/17 11/13/17 Range/Units 04:54 07:47 09:54 RBC (3.80-5.40) m/uL Hgb (11.4-16.0) gm/dL Hct (34.0-46.0) % Plt Count (150-450) k/uL Lymphocytes # (1.0-4.8) k/uL Sodium 134 L (137-145) mmol/L BUN 24 H (7-17) mg/dL Creatinine 0.50 L (0.52-1.04) mg/dL Glucose (74-99) mg/dL POC Glucose (mg/dL) 261 H (75-99) mg/dL Calcium 8.1 L (8.4-10.2) mg/dL AST 40 H (14-36) U/L Total Protein 4.7 L (6.3-8.2) g/dL Albumin 2.6 L (3.5-5.0) g/dL Urine Appearance Cloudy H (Clear) Urine Blood Moderate H (Negative) Ur Leukocyte Esterase Moderate H (Negative) Urine RBC 7 H (0-5) /hpf Urine Bacteria Many H (None) /hpf Urine Mucus Rare H (None) /hpf Diabetes panel 11/12/17 11/13/17 Range/Units 19:53 04:54 Sodium 137 134 L (137-145) mmol/L Potassium 4.2 4.0 (3.5-5.1) mmol/L Chloride 107 107 (98-107) mmol/L Carbon Dioxide 22 23 (22-30) mmol/L BUN 23 H 24 H (7-17) mg/dL Creatinine 0.60 0.50 L (0.52-1.04) mg/dL Glucose 102 H 99 (74-99) mg/dL Calcium 8.5 8.1 L (8.4-10.2) mg/dL AST 40 H (14-36) U/L ALT 49 (9-52) U/L Alkaline Phosphatase 70 (38-126) U/L Total Protein 4.7 L (6.3-8.2) g/dL Albumin 2.6 L (3.5-5.0) g/dL Calcium panel 11/12/17 11/13/17 Range/Units 19:53 04:54 Calcium 8.5 8.1 L (8.4-10.2) mg/dL Phosphorus 2.5 (2.5-4.5) mg/dL Albumin 2.6 L (3.5-5.0) g/dL Pituitary panel 11/12/17 11/13/17 Range/Units 19:53 04:54 Sodium 137 134 L (137-145) mmol/L Potassium 4.2 4.0 (3.5-5.1) mmol/L Chloride 107 107 (98-107) mmol/L Carbon Dioxide 22 23 (22-30) mmol/L BUN 23 H 24 H (7-17) mg/dL Creatinine 0.60 0.50 L (0.52-1.04) mg/dL Glucose 102 H 99 (74-99) mg/dL Calcium 8.5 8.1 L (8.4-10.2) mg/dL Adrenal panel 11/12/17 11/13/17 Range/Units 19:53 04:54 Sodium 137 134 L (137-145) mmol/L Potassium 4.2 4.0 (3.5-5.1) mmol/L Chloride 107 107 (98-107) mmol/L Carbon Dioxide 22 23 (22-30) mmol/L BUN 23 H 24 H (7-17) mg/dL Creatinine 0.60 0.50 L (0.52-1.04) mg/dL Glucose 102 H 99 (74-99) mg/dL Calcium 8.5 8.1 L (8.4-10.2) mg/dL Total Bilirubin 0.3 (0.2-1.3) mg/dL AST 40 H (14-36) U/L ALT 49 (9-52) U/L Alkaline Phosphatase 70 (38-126) U/L Total Protein 4.7 L (6.3-8.2) g/dL Albumin 2.6 L (3.5-5.0) g/dL - Imaging Chest x-ray: report reviewed, image reviewed CT scan - chest: report reviewed, image reviewed Assessment and Plan (1) Fall from animal being ridden Current Visit: Yes Status: Acute Code(s): V80.018A - ANIML-RIDR INJURED BY FALL FR ANIML IN NONCLSN ACC, INIT SNOMED Code(s): 605713058 (2) Closed fracture of right clavicle Current Visit: Yes Status: Acute Code(s): S42.001A - FRACTURE OF UNSP PART OF RIGHT CLAVICLE, INIT FOR CLOS FX SNOMED Code(s): 28685177 (3) Closed right scapular fracture Current Visit: Yes Status: Acute Code(s): S42.101A - FRACTURE OF UNSP PART OF SCAPULA, RIGHT SHOULDER, INIT SNOMED Code(s): 55319508 (4) Flail chest Current Visit: Yes Status: Acute Code(s): S22.5XXA - FLAIL CHEST, INITIAL ENCOUNTER FOR CLOSED FRACTURE SNOMED Code(s): 93047929 (5) Hemothorax on right Current Visit: Yes Status: Acute Code(s): J94.2 - HEMOTHORAX SNOMED Code(s ): 95905472 (6) Multiple closed fractures of ribs of right side Current Visit: Yes Status: Acute Code(s): S22.41XA - MULTIPLE FRACTURES OF RIBS, RIGHT SIDE, INIT FOR CLOS FX SNOMED Code(s): 02223956 Plan: The patient was seen and examined. Chart diagnostics were reviewed. Patient was seen and examined by Dr. Madrigal. No surgical intervention is planned at this time. We will remove her right pleural chest tube and obtain a chest x- ray 1 hour post chest tube removal. She may be transferred to fourth floor medical surgical unit per the cardiothoracic standpoint. We will obtain a computed tomography scan of her chest with 3-D rib reconstruction. Thank you Dr. Mcdowell for this consult and we look forward to working with you in the care of your patient. Time with Patient: Greater than 30
--- NOTE | 2017-11-13 16:04 | P.CONS ---
History of Present Illness - Reason for Consult From a refracture hemopneumothorax - History of Present Illness 61-year-old very pleasant female had a traumatic injury to the chest while riding a horse, patient is found to have hemopneumothorax on the right side with right-sided pleural effusion patient had a chest tube which was subsequently removed today patient had some subcutaneous emphysema. Patient was initially admitted to [facility] subsequently transferred here. Patient was evaluated by mail technician when she was admitted to ICU here and the [facility] thoracic surgeon. Patient's chest tube was pulled out. Patient is having pain in the right side of the chest with deep breathing and has right arm sling. Patient had fractures of the ninth, 10th, 11th and 12th rib fractures with pulmonary contusion. Pain is well-controlled with nonsteroidal anti-inflammatory medications. Patient is receiving incentive spirometry. Review of Systems REVIEW OF SYSTEMS: CONSTITUTIONAL: No fever, no malaise, no fatigue. HEENT: No recent visual problems or hearing problems. Denied any sore throat. CARDIOVASCULAR: No orthopnea, PND, no palpitations, no syncope. PULMONARY: No shortness of breath, no cough, no hemoptysis. GASTROINTESTINAL: No diarrhea, no nausea, no vomiting, no abdominal pain. Normoactive bowel sounds. NEUROLOGICAL: No headaches, no weakness, no numbness. HEMATOLOGICAL: Denies any bleeding or petechiae. GENITOURINARY: Denies any burning micturition, frequency, or urgency. MUSCULOSKELETAL/RHEUMATOLOGICAL: Denies any joint pain, swelling, or any muscle pain. ENDOCRINE: Denies any polyuria or polydipsia. The rest of the 14-point review of systems is negative. Past Medical History Past Medical History: Fibromyalgia Additional Past Medical History / Comment(s): Depression, fibromyalgia, obesity with a previous that bad and current BMI 33.1 History of Any Multi-Drug Resistant Organisms: None Reported Past Surgical History: Bariatric Surgery, Bladder Surgery, Cholecystectomy, Hernia Repair, Hysterectomy Additional Past Surgical History / Comment(s): bladder suspension, lap band, partial hysterectomy, lasik eye sx, abd hernia, upper dental implant Past Anesthesia/Blood Transfusion Reactions: No Reported Reaction Past Psychological History: Depression Smoking Status: Never smoker Past Alcohol Use History: Occasional Past Drug Use History: None Reported - Past Family History Mother Family Medical History: Cancer (Breast cancer) Additional Family Medical History / Comment(s): breast cancer Father Family Medical History: No Reported History Additional Family Medical History / Comment(s): when pt was young from a mva Brother(s) Family Medical History: Myocardial Infarction ([place]) (Her brother had a myocardial infarction at age 30.) Medications and Allergies Home Medications Medication Instructions Recorded Confirmed Type Gabapentin [Neurontin] 300 mg PO BID 11/12/17 11/12/17 History Meloxicam [Mobic] 15 mg PO DAILY 11/12/17 11/12/17 History Ranitidine HCl [Zantac] 75 mg PO DAILY 11/12/17 11/12/17 History Venlafaxine HCl [Effexor] 75 mg PO DAILY 11/12/17 11/12/17 History Allergies Allergy/AdvReac Type Severity Reaction Status Date / Time No Known Allergies Allergy Verified 11/12/17 14:47 Physical Exam Vitals: Vital Signs Temp Pulse Resp BP Pulse Ox 11/13/17 15:12 12 11/13/17 11:45 11 L 11/13/17 09:00 74 11 L 126/61 95 11/13/17 08:00 98.8 F 82 20 125/58 95 11/13/17 07:00 73 9 L 117/60 95 11/13/17 06:00 75 15 139/57 94 L 11/13/17 05:00 76 15 128/60 94 L 11/13/17 04:00 98.7 F 77 17 141/69 98 11/13/17 03:00 77 18 138/70 97 11/13/17 02:00 79 19 141/67 96 11/13/17 01:00 79 18 130/85 96 11/13/17 00:00 98.7 F 103 H 20 117/58 99 11/12/17 23:00 84 18 119/57 97 11/12/17 22:00 85 20 116/57 98 11/12/17 21:00 96 13 127/54 98 11/12/17 20:30 86 23 145/58 98 11/12/17 20:00 98.0 F 87 21 141/64 97 11/12/17 19:30 86 24 152/70 98 11/12/17 19:00 81 16 131/60 97 11/12/17 18:30 85 23 105/67 97 11/12/17 18:00 85 71 H 105/67 94 L 11/12/17 17:34 85 11 L 96 11/12/17 17:00 83 16 117/62 96 11/12/17 16:30 82 15 126/54 98 Intake and Output 11/13/17 11/13/17 11/13/17 06:59 14:59 22:59 Intake Total 525 450 Output Total 33 80 Balance 492 370 Intake: IV 525 450 0.9 sodium chloride 300 Dextrose 5% in Water 1, 525 150 000 ml @ 75 mls/hr IV . [id number] [facility] Rx#:[id number] Output: Chest Tube Drainage 30 80 Chest Tube Right Lateral 30 80 Chest Stool 3 Other: Voiding Method Bedside Commode Bedside Commode # Voids 1 2 # Bowel Movements 1 Weight 99.2 kg PHYSICAL EXAMINATION: GENERAL: The patient is alert and oriented x3, not in any acute distress. Well developed, well nourished. HEENT: Pupils are round and equally reacting to light. EOMI. No scleral icterus. No conjunctival pallor. Normocephalic, atraumatic. No pharyngeal erythema. No thyromegaly. CARDIOVASCULAR: S1 and S2 present. No murmurs, rubs, or gallops. PULMONARY: Chest is clear to auscultation, no wheezing or crackles. Patient had a right arm sling chest tube was removed has fairly good air entry into bilateral lung tom. ABDOMEN: Soft, nontender, nondistended, normoactive bowel sounds. No palpable organomegaly. MUSCULOSKELETAL: No joint swelling or deformity. EXTREMITIES: No cyanosis, clubbing, or pedal edema. NEUROLOGICAL: Gross neurological examination did not reveal any focal deficits. SKIN: No rashes. Results CBC & Chem 7: 11/13/17 04:54 11/13/17 04:54 Labs: Abnormal Lab Results - Last 24 Hours (Table) 11/12/17 11/12/17 11/12/17 Range/Units 19:53 19:53 20:00 RBC (3.80-5.40) m/uL Hgb (11.4-16.0) gm/dL Hct (34.0-46.0) % Plt Count 147 L (150-450) k/uL Lymphocytes # (1.0-4.8) k/uL Sodium (137-145) mmol/L BUN 23 H (7-17) mg/dL Creatinine (0.52-1.04) mg/dL Glucose 102 H (74-99) mg/dL POC Glucose (mg/dL) 102 H (75-99) mg/dL Calcium (8.4-10.2) mg/dL AST (14-36) U/L Total Protein (6.3-8.2) g/dL Albumin (3.5-5.0) g/dL Urine Appearance (Clear) Urine Blood (Negative) Ur Leukocyte Esterase (Negative) Urine RBC (0-5) /hpf Urine Bacteria (None) /hpf Urine Mucus (None) /hpf 11/12/17 11/13/17 11/13/17 Range/Units 23:38 04:21 04:54 RBC 3.71 L (3.80-5.40) m/uL Hgb 10.8 L (11.4-16.0) gm/dL Hct 32.0 L (34.0-46.0) % Plt Count (150-450) k/uL Lymphocytes # 0.8 L (1.0-4.8) k/uL Sodium (137-145) mmol/L BUN (7-17) mg/dL Creatinine (0.52-1.04) mg/dL Glucose (74-99) mg/dL POC Glucose (mg/dL) 126 H 106 H (75-99) mg/dL Calcium (8.4-10.2) mg/dL AST (14-36) U/L Total Protein (6.3-8.2) g/dL Albumin (3.5-5.0) g/dL Urine Appearance (Clear) Urine Blood (Negative) Ur Leukocyte Esterase (Negative) Urine RBC (0-5) /hpf Urine Bacteria (None) /hpf Urine Mucus (None) /hpf 11/13/17 11/13/17 11/13/17 Range/Units 04:54 07:47 09:54 RBC (3.80-5.40) m/uL Hgb (11.4-16.0) gm/dL Hct (34.0-46.0) % Plt Count (150-450) k/uL Lymphocytes # (1.0-4.8) k/uL Sodium 134 L (137-145) mmol/L BUN 24 H (7-17) mg/dL Creatinine 0.50 L (0.52-1.04) mg/dL Glucose (74-99) mg/dL POC Glucose (mg/dL) 261 H (75-99) mg/dL Calcium 8.1 L (8.4-10.2) mg/dL AST 40 H (14-36) U/L Total Protein 4.7 L (6.3-8.2) g/dL Albumin 2.6 L (3.5-5.0) g/dL Urine Appearance Cloudy H (Clear) Urine Blood Moderate H (Negative) Ur Leukocyte Esterase Moderate H (Negative) Urine RBC 7 H (0-5) /hpf Urine Bacteria Many H (None) /hpf Urine Mucus Rare H (None) /hpf Assessment and Plan Plan: -Traumatic right chest injury and rib fractures with a right-sided hemopneumothorax: Status post chest tube and removal continue with nonsteroidal anti-inflammatories along with GI prophylaxis -Right clavicular fracture comminuted for which patient has a right arm sling -Right scapular fracture Depression Fibromyalgia We'll continue with present medications pain is fairly well controlled now.
--- NOTE | 2017-11-13 16:26 | XR ---
EXAMINATION TYPE: XR chest 1V portable DATE OF EXAM: 11/13/2017 COMPARISON: 11/13/2017 earlier in the day INDICATION: Chest tube removal TECHNIQUE: Single frontal view of the chest is obtained. FINDINGS: The heart size is mildly prominent. The pulmonary vasculature is normal. Mild infiltrate is in the right lower lobe. Some minimal infiltrate may be along the left diaphragm. There is a pneumothorax at the right apex estimated at 10%. This has developed from the chest tube re moval. Multiple rib fractures are again evident on the right. IMPRESSION: 1. Interval development of a 10% right apical pneumothorax post chest tube removal. A Red level critical message alert has been initiated for Anastacio Mcdowell MD via the [employer] Critical Results System on 11/13/2017 4:24 PM. This message alert has been sent to [facility] via the preferences provided by the clinician for the receipt of Radiology Critical Findings. [employer] ID [id number].
[2017-11-13] MEDS: GABAPENTIN 300 MG CAP PO SCH (20:35)
[2017-11-13 23:14] VITALS: RESP 16
[2017-11-14] MEDS: HYDROmorphone 1 MG/ML 1 ML SYRINGE IVP PRN ×5 (01:46→17:48)
[2017-11-14] MEDS: KETOROLAC 30 MG/ML 1 ML VIAL IVP SCH ×2 (05:29→07:42)
[2017-11-14] MEDS: HYDROcodone/APAP 5-325MG 1 EACH TAB PO SCH ×3 (07:03→17:03)
[2017-11-14] MEDS: PANTOPRAZOLE 40 MG TABLET PO SCH (07:42)
[2017-11-14] MEDS: ENOXAPARIN 40 MG/0.4 ML SYRINGE SQ SCH (07:42)
[2017-11-14] MEDS: GABAPENTIN 300 MG CAP PO SCH (07:42)
[2017-11-14] MEDS: SODIUM CHLORIDE 0.9% 1,000 ML IV SCH (07:43)
[2017-11-14 08:20] LABS: Basophils % (A) 0 %; Eosinophils # (A) 0.1 k/uL (0-0.7); Eosinophils % (A) 2 %; HCT 31.2 % (34.0-46.0); HGB 10.6 gm/dL (11.4-16.0); Lymphocytes # (A) 0.8 k/uL (1.0-4.8); Lymphocytes % (A) 12 %; MCH 29.6 pg (25.0-35.0); MCHC 34.1 g/dL (31.0-37.0); MCV 86.9 fL (80.0-100.0); Mean Platelet Volume 6.9; Monocytes # (A) 0.4 k/uL (0-1.0); Monocytes % (A) 7 %; Neutrophils # (A) 5.2 k/uL (1.3-7.7); Neutrophils % (A) 79 %; Platelet Count 194 k/uL (150-450); RBC 3.59 m/uL (3.80-5.40); RDW 14.2 % (11.5-15.5); WBC 6.6 k/uL (3.8-10.6)
[2017-11-14 08:40] LABS: Anion Gap 4 mmol/L; Blood Urea Nitrogen 15 mg/dL (7-17); Calcium 7.8 mg/dL (8.4-10.2); Carbon Dioxide 23 mmol/L (22-30); Chloride 110 mmol/L (98-107); Glucose 81 mg/dL (74-99); Phosphorus 2.9 mg/dL (2.5-4.5); Potassium 3.9 mmol/L (3.5-5.1); Sodium 137 mmol/L (137-145)
[2017-11-14] MEDS ORDERED: VENLAFAXINE HCL 75 MG TAB PO SCH (09:00)
--- NOTE | 2017-11-14 10:05 | P.PN ---
Subjective Progress Note Date: 11/14/17 This is a 62-year-old female was admitted after a fall from a horse sustaining multiple rib fractures, pneumothorax, scapular fracture and clavicle fracture. Patient states that her right shoulder has been very painful. Patient states that she cannot get out of bed due to pain. Patient denies any new complaints, numbness, weakness or tingling. Objective - Vital Signs Vital signs: Vital Signs Temp 99.4 F 11/14/17 06:58 Pulse 83 11/14/17 06:58 Resp 16 11/14/17 06:58 BP 144/85 11/14/17 06:58 Pulse Ox 93 L 11/14/17 06:58 Intake & Output 11/13/17 11/14/17 11/14/17 18:59 06:59 18:59 Intake Total 450 Output Total 80 Balance 370 Intake: IV 450 0.9 sodium chloride 300 Dextrose 5% in Water 1, 150 000 ml @ 75 mls/hr IV . [id number] [facility] Rx#:[id number] Output: Chest Tube Drainage 80 Chest Tube Right Lateral 80 Chest Other: Voiding Method Bedside Commode Bedside Commode # Voids 2 4 # Bowel Movements 1 0 - Exam On exam patient is alert and oriented 3 lying in bed in no acute distress. There is ecchymosis and swelling over the right upper extremity. Patient has full sensation of the right upper extremity. Right upper extremity is warm and well perfused. Patient has full range of motion of the right wrist and hand. Radial pulses 2+. Neurovascular status and circulatory status are intact. - Labs CBC & Chem 7: 11/14/17 07:37 11/14/17 07:37 Labs: Abnormal Lab Results - Last 24 Hours (Table) 11/13/17 Range/Units 09:54 Urine Appearance Cloudy H (Clear) Urine Blood Moderate H (Negative) Ur Leukocyte Esterase Moderate H (Negative) Urine RBC 7 H (0-5) /hpf Urine Bacteria Many H (None) /hpf Urine Mucus Rare H (None) /hpf Assessment and Plan (1) Closed fracture of right clavicle Current Visit: Yes Status: Acute Code(s): S42.001A - FRACTURE OF UNSP PART OF RIGHT CLAVICLE, INIT FOR CLOS FX SNOMED Code(s): 74568740 (2) Closed right scapular fracture Current Visit: Yes Status: Acute Code(s): S42.101A - FRACTURE OF UNSP PART OF SCAPULA, RIGHT SHOULDER, INIT SNOMED Code(s): 26486452 (3) Fall from animal being ridden Current Visit: Yes Status: Acute Code(s): V80.018A - ANIML-RIDR INJURED BY FALL FR ANIML IN NONCLSN ACC, INIT SNOMED Code(s): 914281536 (4) Flail chest Current Visit: Yes Status: Acute Code(s): S22.5XXA - FLAIL CHEST, INITIAL ENCOUNTER FOR CLOSED FRACTURE SNOMED Code(s): 74335251 (5) Hemothorax on right Current Visit: Yes Status: Acute Code(s): J94.2 - HEMOTHORAX SNOMED Code(s ): 46419149 (6) Multiple closed fractures of ribs of right side Current Visit: Yes Status: Acute Code(s): S22.41XA - MULTIPLE FRACTURES OF RIBS, RIGHT SIDE, INIT FOR CLOS FX SNOMED Code(s): 45269675 Plan: Results: Shoulder CT is reviewed showin. Comminuted fracture of the distal third clavicular shaft with 2 shafts width of posterior displacement. 2. Comminuted fracture of the scapula body. A major fracture fragment involves the medial scapular body measuring 7.6 x 4.1 cm it is located below the spine of the scapula and extends inferiorly. A second major fracture fragment involves the inferior angle of the scapula and measures 2.6 x 3.5 cm. With 3-D reconstruction shows these well. 3. Moderate glenohumeral joint OA. 4. Chest with multiple right-sided rib fractures and chest tubes reported separately. Plan: 1. Continue pain control and maintain sling when out of bed. 2. Ice to right shoulder as needed for pain and swelling. 3. Recommend transfer to orthopedic trauma specialist regarding scapular fracture. Patient could follow up as an outpatient for this within the week, but may not do well at home as she has had a lot of difficulty with mobilization due multiple injuries and pain. Case discussed with Dr. Radford.
--- NOTE | 2017-11-14 11:26 | XR ---
EXAMINATION TYPE: XR chest 1V DATE OF EXAM: 11/14/2017 COMPARISON: 11/13/2017 INDICATION: Right pneumothorax TECHNIQUE: Single frontal view of the chest is obtained. FINDINGS: The heart size is mildly prominent. The pulmonary vasculature is normal. Infiltrate is at the right lower lobe. Correlate for increasing atelectasis. Multiple right-sided rib fractures are again evident. No right apical pneumothorax is evident on the current examination. Previous small pneumothorax has r esolved. IMPRESSION: 1. Resolution of previous right pneumothorax. 2. Developing right lower lobe infiltrate. Correlate for pneumonia and atelectasis.. 3. Multiple right-sided rib fractures
[2017-11-14] MEDS ORDERED: HYDROmorphone 2 MG TAB PO PRN (11:41)
--- NOTE | 2017-11-14 12:15 | P.PN ---
Subjective Progress Note Date: 11/14/17 Principal diagnosis: Traumatic right chest injury following a fall from a horse, right-sided hemopneumothorax, multiple right-sided rib fractures, right clavicular and right scapular fracture A 62-year-old female patient was brought in via embolus from [place] for traumatic chest injury and flail chest. The patient was horseback riding and she fell and she sustained a blunt trauma to her chest. CAT scan of the chest abdomen and pelvis was done at [facility] and the visualized tracheal bronchial tree was within normal limits and there was evidence of pulmonary contusion in the right lower lobe and the right middle lobe and there was moderate to large right-sided pneumothorax with moderate to large right-sided pleural effusion possibly a hemothorax. There was some tenderness emphysema tracking along the right hemithorax. There was air distention of the esophagus. Comminuted fracture of the distal right clavicle. Comminuted fracture of the right scapula. Fracture of the posterior right second rib and fracture of the posterior and the lateral and anterior third rib , and fracture of the anterior fourth rib and the lateral fourth rib, and the fracture of the lateral right fifth rib in addition to fractures of the 678 and ninth and 10th and 11th rib. The 12th of was intact. Rest of the abdominal structures were within normal limits. The patient has a cholecystectomy. The patient had a lap band in place. CAT scan of the cervical spine showed no evidence of any fracture. And a computed tomography scan of the head was negative. The patient had a right-sided chest tube inserted and following that she had adequate expansion of the right lung and she was given adequate pain control and she was transferred to our hospital for further care. At this point in time the patient is comfortable on 2 L of oxygen by nasal cannula. Her pain control is through Dilaudid and no cord she is taking Tylenol in addition. She is pulling approximately 7 50 mL on incentive spirometer. Her pain is under good control and scale of 10 she is 2-3. No tachypnea. No tachycardia. No altered mentation. That hemoglobin has also stayed stable. Admission hemoglobin level was 13.4. She has normal renal function. On 11/13/2017 patient seen in follow-up in the intensive care unit. Awake alert , and the pain in her right shoulder and the right side of the chest is more bothersome today. Currently she is on [place] 5 mg 2 tablets every 6 hours as needed, Toradol, and Dilaudid for breakthrough pain. She has not been asking for the Dilaudid on the regular basis, patient was encouraged to not wait too long for pain medications. Otherwise she remains hemodynamically stable, she is afebrile, room air pulse ox is 95%, lung sounds are diminished, patient is taken shallow breaths. Right chest tube site is clean dry and intact, has been 80 mL of serosanguineous drainage from its in the last 24 hours, no air leak noted. Today's chest x-ray has been reviewed,it shows a right-sided chest tube in proper position, no pneumothorax, minimal fluid within the left costophrenic angle, and multiple right-sided rib fractures. Orthopedic surgery has been consulted in regards to the right scapular and clavicular fracture. Right shoulder is noted to be more bruised on today's exam. Distal pulses are intact. Today's labs were noted, WBC of 6.4, hemoglobin is 10.8, sodium is 134 , the rest of her electrolytes and renal profile are relatively unremarkable. Able to achieve 750 and her incentive spirometer today. Patient seen today 11/14/2017 in follow-up in the regular medical floor. She is currently resting fairly comfortably in bed. She does have ongoing pain issues regarding her multiple injuries. She does deny any worsening shortness of breath today. She has a nonproductive cough. No chills or night sweats. He is maintaining good O2 saturations in the 90s on room air. She's been afebrile. Hemodynamically stable. White count 6.6. Hemoglobin 10.6. Creatinine 0.51. His been seen both by cardiothoracic and orthopedics were not planning any surgical interventions at this time. She continues to work well with the incentive spirometer. Objective - Vital Signs Vital signs: Vital Signs Temp 99.4 F 11/14/17 06:58 Pulse 83 11/14/17 06:58 Resp 16 11/14/17 06:58 BP 144/85 11/14/17 06:58 Pulse Ox 93 L 11/14/17 06:58 Intake & Output 11/13/17 11/14/17 11/14/17 18:59 06:59 18:59 Intake Total 450 Output Total 80 Balance 370 Intake: IV 450 0.9 sodium chloride 300 Dextrose 5% in Water 1, 150 000 ml @ 75 mls/hr IV . [id number] [facility] Rx#:[id number] Output: Chest Tube Drainage 80 Chest Tube Right Lateral 80 Chest Other: Voiding Method Bedside Commode Bedside Commode # Voids 2 4 1 # Bowel Movements 1 0 - Exam - Exam Gen. appearance, comfortable likely distress. Head exam was generally normal. There was no scleral icterus or corneal arcus. Mucous membranes were moist. Neck was supple and without jugular venous distension, thyromegaly, or carotid bruits. Carotids were easily palpable bilaterally. There was no adenopathy. Lungs sounds are diminished in the right compared to the left. The patient is a right-sided chest tube. There is obvious chest wall deformity on the right. 2 multiple rib fractures. The patient is a right-sided chest tube and the patient has 980 mL of serosanguineous bloody fluid accommodating in the Pleur- evac. Cardiac exam revealed the PMI to be normally situated and sized. The rhythm was regular and no extrasystoles were noted during several minutes of auscultation. The first and second heart sounds were normal and physiologic splitting of the second heart sound was noted. There were no murmurs, rubs, clicks, or gallops. Abdominal exam revealed normal bowel sounds. The abdomen was soft, non-tender, and without masses, organomegaly, or appreciable enlargement of the abdominal aorta. Examination of the extremities revealed easily palpable radial, femoral and pedal pulses. There was no cyanosis, clubbing or edema. The right approximately is placed in a sling. Examination of the skin revealed no evidence of significant rashes, suspicious appearing nevi or other concerning lesions. Bruising noted of the right shoulder Neurologic the patient is awake and alert and there is no focal neurological deficit at this point in time. - Labs CBC & Chem 7: 11/14/17 07:37 11/14/17 07:37 Labs: Abnormal Lab Results - Last 24 Hours (Table) 11/14/17 11/14/17 Range/Units 07:37 07:37 RBC 3.59 L (3.80-5.40) m/uL Hgb 10.6 L (11.4-16.0) gm/dL Hct 31.2 L (34.0-46.0) % Lymphocytes # 0.8 L (1.0-4.8) k/uL Chloride 110 H (98-107) mmol/L Creatinine 0.51 L (0.52-1.04) mg/dL Calcium 7.8 L (8.4-10.2) mg/dL Assessment and Plan Assessment: Assessment: 1 traumatic right chest injury post hoarse right accident 2 right sided hemopneumothorax status post right-sided chest tube insertion with successful expansion of the right lung and evacuation of the pleural fluid/ pneumothorax. There is no evidence of any air leak to the right-sided chest tube. There may be an underlying component of pulmonary contusion, right-sided. 3 multilevel right-sided rib fractures extending from the first of the 11th rib. Suspect a component of flail chest due to multilevel rib fractures. 4 right clavicular fracture, comminuted 5 right scapular fracture, comminuted 6 depression 7 fibromyalgia Plan The patient was seen and evaluated by Dr. Jay. Chest x-ray shows resolution of previous right pneumothorax. Chest tube remains in place. She is currently stable from the pulmonary standpoint. She is working well with the incentive spirometer. Her pain is fairly well controlled. She has been seen by cardiothoracic and orthopedics who are not planning any further surgical intervention at this time. We'll increase her activity as tolerated. We'll continue to follow. I, the cosigning physician, performed a history & physical examination of the patient. Lungs sounds with coarse rhonchi on the right. Maintaining good O2 saturations in the 90s on room air. I discussed the assessment and plan of care with my nurse practitioner, Adri Lehman. I attest to the above note as dictated by her.
[2017-11-14] MEDS ORDERED: KETOROLAC 30 MG/ML 1 ML VIAL IVP PRN (13:20)
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
--- NOTE | 2017-11-14 14:31 | P.PN ---
Subjective Progress Note Date: 11/14/17 Principal diagnosis: Fractures Patient still having pain right side. Orthopedics is advising inpatient transfer for definitive management of scapular fracture. Patient's shortness of breath is improved. Tolerating diet. Objective - Vital Signs Vital signs: Vital Signs Temp 99.4 F 11/14/17 06:58 Pulse 83 11/14/17 06:58 Resp 16 11/14/17 06:58 BP 144/85 11/14/17 06:58 Pulse Ox 93 L 11/14/17 06:58 Intake & Output 11/13/17 11/14/17 11/14/17 18:59 06:59 18:59 Intake Total 450 Output Total 80 Balance 370 Intake: IV 450 0.9 sodium chloride 300 Dextrose 5% in Water 1, 150 000 ml @ 75 mls/hr IV . [id number] [facility] Rx#:[id number] Output: Chest Tube Drainage 80 Chest Tube Right Lateral 80 Chest Other: Voiding Method Bedside Commode Bedside Commode # Voids 2 4 1 # Bowel Movements 1 0 - Exam Abdomen: Soft, nondistended, nontender, right chest wall tenderness noted - Labs CBC & Chem 7: 11/14/17 07:37 11/14/17 07:37 Labs: Abnormal Lab Results - Last 24 Hours (Table) 11/14/17 11/14/17 Range/Units 07:37 07:37 RBC 3.59 L (3.80-5.40) m/uL Hgb 10.6 L (11.4-16.0) gm/dL Hct 31.2 L (34.0-46.0) % Lymphocytes # 0.8 L (1.0-4.8) k/uL Chloride 110 H (98-107) mmol/L Creatinine 0.51 L (0.52-1.04) mg/dL Calcium 7.8 L (8.4-10.2) mg/dL Assessment and Plan (1) Closed right scapular fracture Narrative/Plan: Continue pulmonary toilet. Will discuss further with orthopedics regarding the recommendation of transfer. Current Visit: Yes Status: Acute Code(s): S42.101A - FRACTURE OF UNSP PART OF SCAPULA, RIGHT SHOULDER, INIT SNOMED Code(s): 08020773
[2017-11-14 15:27] VITALS: BP 121/82; PULSE 70; TEMP 97.5
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
[2017-11-14] MEDS ORDERED: KETOROLAC 30 MG/ML 1 ML VIAL IVP SCH (18:00)
== END 2017-11-14 18:41 | disposition short-term general hospital (02) | DRG 183 ==
LOC: 6ICU 11-12 13:42 → 4MS4W 11-13 13:18
PROVIDERS: ADMIT Surgery; ATTEND Surgery
DX: S22.5XXA Flail chest, initial encounter for closed fracture (principal); S27.2XXA Traumatic hemopneumothorax, initial encounter; S27.321A Contusion of lung, unilateral, initial encounter; T79.7XXA Traumatic subcutaneous emphysema, initial encounter; S42.111A Displaced fracture of body of scapula, right shoulder, initial encounter for closed fracture; S42.031A Displaced fracture of lateral end of right clavicle, initial encounter for closed fracture; E66.9 Obesity, unspecified; M79.7 Fibromyalgia; F32.9 Major depressive disorder, single episode, unspecified; Z68.33 Body mass index [BMI] 33.0-33.9, adult; Z79.1 Long term (current) use of non-steroidal anti-inflammatories (NSAID); Z79.899 Other long term (current) drug therapy; Z90.49 Acquired absence of other specified parts of digestive tract; Z90.710 Acquired absence of both cervix and uterus; Z98.84 Bariatric surgery status; Z96.5 Presence of tooth-root and mandibular implants; V80.010A Animal-rider injured by fall from or being thrown from horse in noncollision accident, initial encounter; Y93.52 Activity, horseback riding; Z80.3 Family history of malignant neoplasm of breast; Z82.49 Family history of ischemic heart disease and other diseases of the circulatory system
CPT/HCPCS: 71045; 71046; 71250; 80048; 80053; 81001; 83735; 84100; 85025; 85027; 87324

== ENCOUNTER → 2019-02-18 | Outpatient (CLI) | payer BC ==
--- NOTE | 2019-02-18 09:21 | XR ---
EXAMINATION TYPE: XR clavicle RT DATE OF EXAM: 02/18/2019 COMPARISON: Chest x-ray November 14, 2017 HISTORY: Clavicle fracture. TECHNIQUE: 2 views right clavicle are obtained. FINDINGS: Interval successful reduction and fixation of displaced fracture deformity mid to distal as pect right clavicle. Satisfactory alignment with healing is present. Slight superior displacement of the inferior margin distal clavicle relative to the inferior margin of the acromion measuring approxi mately 5 mm is redemonstrated. Multiple posterolateral right rib fracture deformities again seen. Ove rlying soft tissue is unremarkable. Gas-filled dilated esophagus is more prominent. Correlate clinica lly. IMPRESSION: As above.
== END | disposition home or self-care (01) ==
LOC: RADXRYALE 08:54
PROVIDERS: ATTEND Physician Assistant Medical
DX: S42.021D Displaced fracture of shaft of right clavicle, subsequent encounter for fracture with routine healing (principal)

== ENCOUNTER → 2019-02-26 | Outpatient (CLI) | payer BC ==
--- NOTE | 2019-02-26 11:16 | FL ---
EXAMINATION TYPE: FL barium swallow DATE OF EXAM: 02/26/2019 CLINICAL HISTORY: Dysphagia TECHNIQUE: A double contrast esophagram is performed utilizing air and barium. A total of 1 minute and 45 seconds of fluoroscopic time was utilized during procedure. 20 fluoroscopic images were saved during the examination. COMPARISON: None. FINDINGS: The patient drank thick barium consistency without difficulty. There is marked dilation of the proximal esophagus with mid thoracic esophageal narrowing just below the aortic arch but does dis tend upon examination, likely esophageal spasm. Abnormal tertiary contractions are seen throughout th e exam. Additional narrowing is seen just proximal to the gastroesophageal junction that expands on d elayed imaging related to esophageal spasm. There is only a trace amount of contrast that extends jus t distal to the gastric lap band despite prolonged imaging. Severe intraesophageal reflux of contrast is noted. 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 Findings were communicated to Dr. Nikolay ayers's office directly after the examination and the patient was directed to Dr. Mcdowell's offic e.
== END | disposition home or self-care (01) ==
LOC: RADUSWWP 09:39
PROVIDERS: ATTEND Family Medicine
DX: K22.2 Esophageal obstruction (principal); Z98.84 Bariatric surgery status
CPT/HCPCS: 74220

== ENCOUNTER → 2019-02-26 | Outpatient (CLI) | payer BC ==
[2019-02-26 12:18] VITALS: BP 158/67; PULSE 83; TEMP 97.8; BMI 32.4
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
== END | disposition home or self-care (01) ==
LOC: BARWHC3 10:42
PROVIDERS: ATTEND Surgery
DX: Z46.51 Encounter for fitting and adjustment of gastric lap band (principal)
CPT/HCPCS: 99212

== ENCOUNTER → 2019-03-01 | Outpatient (CLI) | payer BC ==
--- NOTE | 2019-03-02 05:01 | FL ---
EXAMINATION TYPE: FL barium swallow DATE OF EXAM: 03/01/2019 CLINICAL INDICATION: 63-year-old female with morbid obesity, follow-up obstruction seen 3 days ago. P atient with 3 mL of fluid removed from the lap band. Lap band placed 14 years ago. COMPARISON: 02/26/2019 Total Fluoroscopy Time: 2 minutes 48 seconds. Total images: 34 FINDINGS: Initial head of human resources image shows appropriate positioning of the lap band. No abnormal tilt to suggest lap ba nd prolapse. Only thin barium was utilized. The thoracic esophagus is markedly dilated. No definite fixed narrowing. Initial irregularity of the distal esophageal mucosa does not seem to persist after the patient was m anipulated in the semisupine and semierect prone position in attempts to adequately coat the distal e sophagus. Direct visualization can be considered to further assess this region. Extensive tertiary peristaltic contractions are demonstrated. When the patient was placed and a semisupine or supine position, there is persistent pooling of contr ast in the esophagus. The patient had to be brought upright for contrast to pass through the lap band . No obstruction is seen. IMPRESSION: 1. Resolution of the patient's previous obstruction after removal of fluid from the lap band. 2. Markedly dilated esophagus. 3. Presbyesophagus with extensive disordered contractions within the esophagus. 4. The patient needs to be brought upright to allow for clearance from the esophagus. There is persis tent pooling in the esophagus when the patient is prone or supine. 5. Direct visualization can be considered to exclude any inflammation/esophagitis distally. No strict ure or ingrid filling defect.
== END ==
LOC: RADUSWWP 11:40
PROVIDERS: ATTEND Surgery
DX: K95.09 Other complications of gastric band procedure (principal); K22.8 Other specified diseases of esophagus
CPT/HCPCS: 74220

== ENCOUNTER → 2019-03-01 | Outpatient (CLI) | payer BC ==
[2019-03-01 15:32] VITALS: BP 156/89; PULSE 67; TEMP 97.9; BMI 29.6
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
== END | disposition home or self-care (01) ==
LOC: BARWHC3 13:58
PROVIDERS: ATTEND Surgery
DX: K21.9 Gastro-esophageal reflux disease without esophagitis (principal); R13.10 Dysphagia, unspecified
CPT/HCPCS: 99213

== ENCOUNTER 2019-03-03 12:08 | Day surgery (SDC) | payer BC ==
[2019-03-02 13:08] VITALS: BMI 29.6
[~2019-03-03 12:08] MED LIST: LACTATED RINGERS 1,000 ML IV SCH; LIDOCAINE 1% 20 ML VIAL (10MG/ML) FOR IV START INTRADERMA PRN
[2019-03-03 13:18] VITALS: RESP 16; TEMP 98
[2019-03-03] MEDS ORDERED: ONDANSETRON 4 MG/2 ML VIAL IVP ONE (13:32)
[2019-03-03] MEDS ORDERED: PROPOFOL 10 MG/ML 20 ML VIAL IV ONE (13:34)
[2019-03-03] MEDS ORDERED: LIDOCAINE 1% INJ 10MG/ML (20 ML MDV) ONE (13:34)
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
--- NOTE | 2019-03-03 13:47 | P.OP ---
Date of Procedure: 03/03/19 Preoperative Diagnosis: Dysphagia Postoperative Diagnosis: Dysphagia Procedure(s) Performed: EGD Anesthesia: MAC Surgeon: Anastacio Mcdowell Pathology: other (Esophagus) Condition: stable Disposition: PACU Description of Procedure: Patient's placed on the endoscopy table in the lateral position. She received IV sedation. The gastroscope placed oropharynx and passed in the esophagus and into the stomach. Scope was then placed through the pylorus. The first and second portion of the duodenum appeared normal. The scope was then brought back the antrum and this appeared normal. Scope was unretroflexed and remainder stomach appeared normal. The patient a previous LAP-BAND device placed this was just below the GE junction. There is no evidence of any inflammation or erosion of the LAP-BAND device. The scope was then brought back to the GE junction this was at 40 cm. The distal esophagus appeared mildly inflamed a biopsies performed. The proximal esophagus appeared normal. Scope was withdrawn for patient.
[2019-03-03 14:23] VITALS: BP 136/86; PULSE 70
== END 2019-03-03 14:46 | disposition home or self-care (01) ==
LOC: ORWHC2ENDO 12:08
PROVIDERS: ATTEND Surgery
DX: K21.0 Gastro-esophageal reflux disease with esophagitis (principal); M79.7 Fibromyalgia; I10 Essential (primary) hypertension; F40.240 Claustrophobia; Z87.891 Personal history of nicotine dependence; Z90.710 Acquired absence of both cervix and uterus; Z90.49 Acquired absence of other specified parts of digestive tract; Z98.84 Bariatric surgery status; Z79.1 Long term (current) use of non-steroidal anti-inflammatories (NSAID); Z79.899 Other long term (current) drug therapy; Z87.81 Personal history of (healed) traumatic fracture; Z98.890 Other specified postprocedural states; Z80.3 Family history of malignant neoplasm of breast; Z82.49 Family history of ischemic heart disease and other diseases of the circulatory system
CPT/HCPCS: 88305; 43239; J2405; J2001; J2704

== ENCOUNTER → 2019-03-08 | Outpatient (CLI) | payer BC ==
[2019-03-08 13:15] VITALS: BP 148/99; PULSE 79; RESP 16; TEMP 98.6; BMI 31.1
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
== END ==
LOC: BARWHC3 12:58
PROVIDERS: ATTEND Surgery
DX: Z46.51 Encounter for fitting and adjustment of gastric lap band (principal); K21.9 Gastro-esophageal reflux disease without esophagitis; R13.10 Dysphagia, unspecified; Z98.84 Bariatric surgery status; Z87.891 Personal history of nicotine dependence; Z90.49 Acquired absence of other specified parts of digestive tract
CPT/HCPCS: 99211

== ENCOUNTER → 2019-03-15 | Outpatient (CLI) | payer BC ==
[2019-03-15 14:35] VITALS: BP 155/98; PULSE 76; TEMP 98.2; BMI 30.4
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
== END | disposition home or self-care (01) ==
LOC: BARWHC3 13:01
PROVIDERS: ATTEND Surgery
DX: Z46.51 Encounter for fitting and adjustment of gastric lap band (principal); Z87.891 Personal history of nicotine dependence; Z98.84 Bariatric surgery status; Z90.49 Acquired absence of other specified parts of digestive tract; Z90.710 Acquired absence of both cervix and uterus
CPT/HCPCS: 99212

== ENCOUNTER → 2019-03-29 | Outpatient (CLI) | payer BC ==
--- NOTE | 2019-03-29 10:21 | MM ---
Reason for exam: additional evaluation requested from prior study. Last mammogram was performed 5 years and 6 months ago. History: Patient is postmenopausal. Family history of breast cancer in maternal aunt and breast cancer in mother at age 67. Took estrogen for 3 years beginning at age 54. Physical Findings: Nurse did not find any significant physical abnormalities on exam. MG Diagnostic Mammo w CAD MARZENA Bilateral CC and MLO view(s) were taken. Prior study comparison: September 16, 2013, bilateral MG diagnostic mammo w CAD MARZENA. August 06, 2012, CAD bilateral diagnostic mammogram. The breast tissue is heterogeneously dense. This may lower the sensitivity of mammography. No suspicious abnormality. No significant new findings when compared with previous films. These results were verbally communicated with the patient and result sheet given to the patient on 03/29/19. ASSESSMENT: Negative, BI-RAD 1 RECOMMENDATION: Routine screening mammogram of both breasts in 1 year.
--- NOTE | 2019-03-29 10:27 | BD ---
EXAMINATION TYPE: Axial Bone Density DATE OF EXAM: 03/29/2019 COMPARISON: NONE CLINICAL HISTORY: Z 13.820 Height: 66 Weight: 207.3 FRAX RISK QUESTIONS: Alcohol (3 or more units per day): no Family History (Parent hip fracture): no Glucocorticoids (More than 3mos): no (Ex: prednisone, prednisolone, methylprednisolone, dexamethasone, and hydrocortisone). History of Fracture in Adulthood: yes Secondary Osteoporosis: 1. Type 1 Diabetes: no 2. Hyperthyroidism: no 3. Menopause before 45: yes 4. Malnutrition: no 5. Chronic liver disease: no Rheumatoid Arthritis: no Current Tobacco Use: no RISK FACTORS HISTORY OF: Family History of Osteoporosis: no Active: yes Diet low in dairy products/other sources of calcium: no Postmenopausal woman: age 39 Lost more than 2 inches in height since high school: no MEDICATIONS: pain meds, Effexor Additional History: EXAM MEASUREMENTS: Bone mineral densitometry was performed using the [employer] System. Bone mineral density as measured about the Lumbar spine is: ----- L1-L4(G/cm2): 1.308 T Score Values are as follows: ----- L2: -0.1 ----- L3: 1.9 ----- L4: 2.3 ----- L1-L4: 1.1 Bone mineral density : baseline Bone mineral density about the R hip (g/cm2): 0.839 Bone mineral density about the L hip (g/cm2): 0.821 T Score values are as follows: -----R Neck: -1.4 -----L Neck: -1.6 -----R Total: -1.0 -----L Total: -1.2 Bone mineral density : baseline IMPRESSION: Osteopenia (T Score between -2.5 and -1). There is slightly increased risk of fracture and the patient may be considered for treatment. Re-Screen 2-5 years. NOTE: T-SCORE=SD OF THE YOUNG ADULT MEAN.
== END | disposition home or self-care (01) ==
LOC: RADBDWWP 07:30
PROVIDERS: ATTEND Family Medicine
DX: M85.80 Other specified disorders of bone density and structure, unspecified site (principal); R92.8 Other abnormal and inconclusive findings on diagnostic imaging of breast; R93.1 Abnormal findings on diagnostic imaging of heart and coronary circulation; R07.9 Chest pain, unspecified
CPT/HCPCS: 77066; 77080

== ENCOUNTER → 2019-04-19 | Outpatient (CLI) | payer BC ==
[2019-04-19 13:06] VITALS: BP 151/86; PULSE 76; TEMP 97.9; BMI 33.1
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
== END | disposition home or self-care (01) ==
LOC: BARWHC3 12:52
PROVIDERS: ATTEND Surgery
DX: Z46.51 Encounter for fitting and adjustment of gastric lap band (principal); Z90.49 Acquired absence of other specified parts of digestive tract; Z87.891 Personal history of nicotine dependence; Z98.84 Bariatric surgery status
CPT/HCPCS: 99212

== ENCOUNTER → 2019-11-11 | Outpatient (CLI) | payer MEDICARE ==
--- NOTE | 2019-11-11 15:03 | CT ---
EXAMINATION TYPE: CT brain wo con DATE OF EXAM: 11/11/2019 COMPARISON: None HISTORY: Memory loss CT DLP: 1056.9 mGycm Automated exposure control for dose reduction was used. FINDINGS: Mild generalized degenerative change. No midline shift or mass effect. Calvarium intact. Mild hyperostosis of the frontal bone. Changes of chronic sinusitis noted. Craniocervical junction maintained. Sella turcica has a normal appearance. IMPRESSION: MILD GENERALIZED DEGENERATIVE CHANGE.
--- NOTE | 2019-11-11 15:48 | US ---
EXAMINATION TYPE: US carotid duplex BILAT DATE OF EXAM: 11/11/2019 COMPARISON: NONE CLINICAL HISTORY: G31.84 Mild cognitive impairment. memory loss EXAM MEASUREMENTS: RIGHT: Peak Systolic Velocity (PSV) cm/sec ----- Right CCA: 79.3 ----- Right ICA: 96.8 ----- Right ECA: 73.5 ICA/CCA ratio: 1.2 RIGHT: End Diastole cm/sec ----- Right CCA: 24.1 ----- Right ICA: 40.1 ----- Right ECA: 19.8 LEFT: Peak Systolic Velocity (PSV) cm/sec ----- Left CCA: 91.0 ----- Left ICA: 82.3 ----- Left ECA: 63.4 ICA/CCA ratio: 0.9 LEFT: End Diastole cm/sec ----- Left CCA: 24.1 ----- Left ICA: 22.7 ----- Left ECA: 14.0 VERTEBRALS (direction of flow): Right Vertebral: Antegrade Left Vertebral: Antegrade Rhythm: Normal Grayscale, color Doppler, spectral Doppler imaging performed of the carotid arteries. Waveform analys is does not show significant stenosis of the internal carotid arteries. No significant stenosis seen IMPRESSION: No hemodynamic significant stenosis of the proximal internal carotid arteries by Doppler criteria, an indirect measurement of carotid stenosis Criteria for Assigning % of Stenosis / Diameter reduction (Estimation based on the indirect measurements of the internal carotid artery velocities (ICA PSV). 1. Normal (no stenosis)=ICA PSV < 125 cm/s: ratio < 2.0: ICA EDV<40 cm/s. 2. Less than 50% stenosis=ICA PSV < 125 cm/s: ratio < 2.0: ICA EDV<40 cm/s. 3. 50 to 69% stenosis=ICA PSV of 125 to 230 cm/s: ration 2.0 ? 4.0: ICA EDV 40-100 cm/s. 4. Greater than 70% stenosis to near occlusion= ICA PSV > 230 cm/s: ratio > 4.0: ICA EDV > 100 cm/s. 5. Near occlusion= ICA PSV velocities may be low or undetectable: variable ratio and ICA EDV. 6. Total occlusion=unable to detect flow.
== END | disposition home or self-care (01) ==
LOC: RADCTMAIN 14:27
PROVIDERS: ATTEND Physician Assistant Medical
DX: G31.9 Degenerative disease of nervous system, unspecified (principal)
CPT/HCPCS: 70450; 93880

== ENCOUNTER → 2021-04-02 | Outpatient (CLI) | payer MEDICARE ==
--- NOTE | 2021-04-02 11:22 | MM ---
Reason for exam: screening (asymptomatic). Last mammogram was performed 2 years ago. History: Patient is postmenopausal. Family history of breast cancer in maternal aunt and breast cancer in mother at age 67. Took estrogen for 3 years beginning at age 54. Physical Findings: A clinical breast exam by your physician is recommended on an annual basis and results should be correlated with mammographic findings. MG 3D Screening Mammo W/Cad Bilateral CC and MLO view(s) were taken. Prior study comparison: March 29, 2019, bilateral MG diagnostic mammo w CAD MARZENA. September 16, 2013, bilateral MG diagnostic mammo w CAD MARZENA. The breast tissue is heterogeneously dense. This may lower the sensitivity of mammography. There are benign appearing round calcifications bilaterally. There is no discrete abnormality. ASSESSMENT: Benign, BI-RAD 2 RECOMMENDATION: Routine screening mammogram of both breasts in 1 year.
--- NOTE | 2021-04-02 11:23 | BD ---
EXAMINATION TYPE: Axial Bone Density DATE OF EXAM: 04/02/2021 COMPARISON: 03.29.2019 CLINICAL HISTORY: 65 YR OLD FEMALE.....ICD-10 CODE: M85.80 DISORDER OF BONE Height: 65 Weight: 208 FRAX RISK QUESTIONS: History of Fracture in Adulthood: YES 3. Menopause before 45: AT AGE 44 RISK FACTORS HISTORY OF: HX OF 11 RIBS, SCAPULA AND CLAVICLE, ON THE RIGHT SIDE, STRAINED LOW BACK, NOT FRACTURED AT AGE 62 Postmenopausal woman: YES AT ABOUT 44 YRS OLD Lost more than 2 inches in height since high school: YES Hyperparathyroidism: NO Adrenal Insufficiency: NO MEDICATIONS: Additional Medications: EFFEXOR, VIT D AND CALCIUM, Additional History: ANXIETY, LOW VIT D, MULTIPLE FXS, LAP BAND SURG EXAM MEASUREMENTS: Bone mineral densitometry was performed using the [employer] System. Bone mineral density as measured about the Lumbar spine is: ----- L1-L4(G/cm2): 1.312 T Score Values are as follows: ----- L1: 0.6 ----- L2: -0.7 ----- L3: 1.2 ----- L4: 2.1 ----- L1-L4: 1.1 Bone mineral density has: Decreased -1.5% since study of: 03.29.2019 Bone mineral density about the R hip (g/cm2): 0.880 Bone mineral density about the L hip (g/cm2): 0.856 T Score values are as follows: -----R Neck: -1.5 -----L Neck: -0.9 -----R Total: -1.0 -----L Total: -1.2 Bone mineral density has: Decreased -0.2% since study of: 03.29.2019 FRAXS: THERE IS A 14.1% CHANCE FOR A MAJOR OSTEOPOROTIC FX AND A 1.5% FOR HIPS.......PROBABILITY FOR FX IN 10 YRS TIME IMPRESSION: Osteopenia (T Score between -2.5 and -1) remains present. There remains slightly increased risk of fracture and the patient may be considered for treatment. Re-Screen 2-5 years. NOTE: T-SCORE=SD OF THE YOUNG ADULT MEAN.
== END | disposition home or self-care (01) ==
LOC: RADMAMWWP 10:09
PROVIDERS: ATTEND Family Medicine
DX: Z12.31 Encounter for screening mammogram for malignant neoplasm of breast (principal); M85.89 Other specified disorders of bone density and structure, multiple sites; Z80.3 Family history of malignant neoplasm of breast; Z78.0 Asymptomatic menopausal state
CPT/HCPCS: 77063; 77067; 77080

== ENCOUNTER → 2021-05-18 | Outpatient (CLI) | payer MEDICARE ==
[2021-05-18 10:18] LABS: Partial Thromboplastin Time 24.6 sec (22.0-30.0); Prothrombin Time 10.6 sec (9.0-12.0)
[2021-05-18 12:12] LABS: Appearance,Urine Clear (Clear); Bilirubin,Urine Negative (Negative); Blood,Urine Negative (Negative); Color,Urine Yellow; Glucose,Urine (UA) Negative (Negative); Ketones,Urine Negative (Negative); Leukocyte Esterase,Urine Negative (Negative); Nitrite,Urine Negative (Negative); Protein,Urine Negative (Negative)
[2021-05-18 16:00] LABS: African American GFR (CKD) 116.9 (60.0-200.0); Albumin 4.1 g/dL (3.8-4.9); Albumin/Globulin Ratio 1.71 (1.60-3.17); Anion Gap 10.8 mmol/L (10.00-18.00); BUN/Creat Ratio 24.6 Ratio (12.00-20.00); Blood Urea Nitrogen 12.3 mg/dL (9.0-27.0); Calcium 9.1 mg/dL (8.7-10.3); Carbon Dioxide 23.2 mmol/L (20.0-27.5); Globulin 2.4 g/dL (1.6-3.3); Non-African American GFR(CKD) 100.9 (60.0-200.0); Potassium 4.1 mmol/L (3.5-5.5); Total Bilirubin 0.4 mg/dL (0.30-1.20); Total Protein 6.5 g/dL (6.2-8.2)
[2021-05-18 16:28] LABS: HCT 41.8 % (37.2-46.3); HGB 13.1 g/dL (12.0-15.0); MCH 26.4 pg (27.0-32.0); MCHC 31.3 g/dL (32.0-37.0); MCV 84.3 fL (80.0-97.0); Mean Platelet Volume 11.6 fL (9.5-12.2); RBC 4.96 X 10*6/uL (4.10-5.20); RDW 16.6 % (11.5-14.5); WBC 5.85 X 10*3/uL (4.50-10.00)
== END | disposition home or self-care (01) ==
LOC: LABPAT 09:32
PROVIDERS: ATTEND Orthopaedic Surgery
DX: Z01.812 Encounter for preprocedural laboratory examination (principal); M16.12 Unilateral primary osteoarthritis, left hip
CPT/HCPCS: 36415; 80053; 81003; 85027; 85610; 85730; 87070

== ENCOUNTER 2021-05-23 11:04 | Observation (INO) | payer MEDICARE ==
[2021-05-18 15:58] VITALS: BMI 32.5
[~2021-05-23 11:04] MED LIST changes: +ACETAMINOPHEN TAB 500 MG TAB PO PRN; +DEXAMETHASONE SOD PHOSPHATE 10 MG/ML 1 ML VIAL IV PRN; +DEXAMETHASONE SOD PHOSPHATE 4 MG/ML 1 ML VIAL IV ONE; +DOCUSATE 100 MG CAP PO PRN; +FAMOTIDINE 20 MG/2 ML VIAL IVP PRN; +HYDROmorphone 0.5 MG/0.5 ML SYRINGE IVP PRN; +KETOROLAC 15 MG/ML 1 ML VIAL IVP PRN; -LACTATED RINGERS 1,000 ML IV SCH; +LIDOCAINE 1% (10MG/ML) FOR IV START INTRADERMA PRN; -LIDOCAINE 1% 20 ML VIAL (10MG/ML) FOR IV START INTRADERMA PRN; +MIDAZOLAM 2 MG/2 ML VIAL IV PRN; +ONDANSETRON 4 MG/2 ML VIAL IVP PRN; +ROPIVACAINE/EPI/CLONIDINE/KET 50 ML SYRINGE MISCELLANE PRN; +TRANEXAMIC ACID 1,000 MG in SODIUM CHLORIDE 0.9% 100 ML IVPB ONE; +TRANEXAMIC ACID 1,000 MG in SODIUM CHLORIDE 0.9% 100 ML IVPB PRN; +VANCOMYCIN 1,000 MG in SODIUM CHLORIDE 0.9% 250 ML IVPB PRN; +oxyCODONE ER 10 MG TAB.ER.12H PO PRN
[2021-05-23] MEDS ORDERED: KETOROLAC 30 MG/ML 1 ML VIAL ONE (11:36)
[2021-05-23] MEDS: LACTATED RINGERS 1,000 ML IV SCH ×2 (11:40→18:37)
[2021-05-23] MEDS: ONDANSETRON 4 MG/2 ML VIAL IVP ONE ×2 (11:45→17:16)
[2021-05-23 12:25] LABS: Anisocytosis Slight; Basophils % (A) 1 %; Eosinophils # (A) 0.2 k/uL (0-0.7); Eosinophils % (A) 4 %; HGB 13.9 gm/dL (11.4-16.0); Lymphocytes # (A) 2.2 k/uL (1.0-4.8); Lymphocytes % (A) 34 %; MCH 28.2 pg (25.0-35.0); MCHC 33.1 g/dL (31.0-37.0); MCV 85.2 fL (80.0-100.0); Monocytes # (A) 0.3 k/uL (0-1.0); Monocytes % (A) 5 %; Neutrophils # (A) 3.5 k/uL (1.3-7.7); Neutrophils % (A) 55 %; Platelet Count 155 k/uL (150-450); RBC 4.93 m/uL (3.80-5.40); WBC 6.4 k/uL (3.8-10.6)
[2021-05-23] MEDS ORDERED: TRANEXAMIC ACID 1,000 MG/10 ML VIAL ONE (12:30)
[2021-05-23] MEDS ORDERED: KETAMINE 10 MG/ML 20 ML VIAL ONE (12:30)
[2021-05-23] MEDS ORDERED: fentaNYL (PF) 50 MCG/ML 2 ML AMP ONE (12:30)
[2021-05-23] MEDS ORDERED: GLYCOPYRROLATE 0.2 MG/ML 2 ML VIAL ONE (12:30)
[2021-05-23] MEDS ORDERED: MIDAZOLAM 2 MG/2 ML VIAL ONE (12:30)
[2021-05-23] MEDS ORDERED: HYDROmorphone (PF) 1 MG/ML ONE (12:30)
[2021-05-23] MEDS ORDERED: ROCURONIUM 10 MG/ML (5 ML VIAL) IV ONE (12:30)
[2021-05-23] MEDS ORDERED: SODIUM CHLORIDE 0.9% 100 ML BAG ONE (12:30)
[2021-05-23] MEDS ORDERED: LIDOCAINE 1% INJ 10MG/ML (20 ML MDV) ONE (12:30)
[2021-05-23] MEDS ORDERED: SUCCINYLCHOLINE CHLORIDE 100 MG/5 ML SYR IV ONE (12:30)
[2021-05-23] MEDS ORDERED: PHENYLEPHRINE-0.9% NACL SYG 1,000 MCG/10 ML SYRINGE ONE (12:30)
[2021-05-23] MEDS ORDERED: NEOSTIGMINE 1 MG/ML 10 ML VIAL ONE (12:30)
[2021-05-23] MEDS ORDERED: PROPOFOL 10 MG/ML 20 ML VIAL IV ONE (12:30)
--- NOTE | 2021-05-23 15:35 | FL ---
Fluoroscopy History: Left Hip-Ant Fluoroscopy
--- NOTE | 2021-05-23 15:36 | XR ---
Fluoroscopy History: Left Hip-Ant LEFT Anterior Total Hip Replacement. 43 secs fluoro. 7 images.
[2021-05-23] MEDS ORDERED: LACTATED RINGERS 1,000 ML IV ONE ×2 (15:48→16:26)
[2021-05-23] MEDS ORDERED: HYDROmorphone 0.2 MG/1 ML SYRINGE IVP PRN (15:57)
[2021-05-23] MEDS ORDERED: HYDROmorphone 0.5 MG/0.5 ML SYRINGE IVP PRN ×2 (15:57)
[2021-05-23] MEDS ORDERED: ONDANSETRON 4 MG/2 ML VIAL IVP PRN (15:57)
[2021-05-23] MEDS ORDERED: NALOXONE 0.4 MG/ML 1 ML VIAL IV PRN (15:57)
[2021-05-23] MEDS ORDERED: hydrOXYzine pamoate 25 MG CAP PO PRN (15:57)
--- NOTE | 2021-05-23 15:58 | P.OP ---
Date of Procedure: 05/23/21 Preoperative Diagnosis: Left Hip Osteoarthritis Postoperative Diagnosis: Left Hip Osteoarthritis Procedure(s) Performed: 1. Left Direct Anterior Total Hip Arthroplasty 2. Application of negative pressure wound VAC, 15 cm (An incisional wound VAC was used due to the adipose tissue around the incision) Implants: 1. Girish Trident II 54-mm cup 2. [place] Accolade II 132-deg, Size #5 Stem 3. Dual mobility - OD 42, ID 28 -4 neck (dual mobility was chosen due to patient's lumbar spine pathology and concern for abnormal spine-pelvic motion) Anesthesia: CRISTIAN Surgeon: Terry Pacheco Cell Inspector #1: Angel Harrison Estimated Blood Loss (ml): 300 IV fluids (ml): 1,300 Pathology: none sent Condition: stable Disposition: PACU Indications for Procedure: I had a long discussion with the patient in the office on the potential risks and complications of an elective total hip replacement through a direct anterior approach. Risks discussed include, but are certainly not limited to, risks from anesthesia, superficial infection requiring local wound care or antibiotics, deep yonatan-prosthetic joint infection and the treatment required to eradicate infection, intraoperative fracture, postoperative periprosthetic fracture, damage to local blood vessels or nerves particularly the lateral femoral cutaneous nerve, delayed wound healing requiring local wound care or possibly surgical debridement, hip dislocation, leg length discrepancy, soft tissue irritation around the total hip implant such as iliopsoas tendinitis or trochanteric bursitis, wear and osteolysis from the implants, squeaking or audible noises, groin pain, thigh pain, heterotopic ossification, stiffness, aseptic loosening of the implants, dissatisfaction with surgical outcome, need for revision surgery, DVT, PE, swelling of the operative extremity, acute coronary event, stroke, failure to thrive, and possibly loss of life or limb. The patient understands that while these are the most common complications after an elective hip replacement there are certainly other less common complications possible. They were given ample time to ask questions regarding the potential complications of a hip replacement. Following our discussion the patient provided their verbal and written consent to go forward with an elective total hip replacement. Description of Procedure: The patient was identified in the preoperative holding area and the correct hip was marked with my initials. I reviewed the procedure and consent with the patient. All of their questions were answered. The patient was then brought back into the operating room by anesthesia. While on the [facility] anesthesia was administered by the anesthesia team. Preoperative antibiotics and tranexamic acid were also given. After the patient was under anesthesia I examined their ankles to determine their preoperative leg length discrepancy. The skin over the anterior aspect of the hip was shaved to remove hair over the site of planned incision. Both feet and ankles were padded with webril and boots for the Mcdonald were applied. The patient was then carefully transferred onto the Mcdonald table. A perineal post was immediately placed. The arms were placed on arm holders and were well-padded. Both boots were secured to the spars on the Mcdonald table. The patient was positioned so that the pelvis was centered over the post. Nonsterile drapes were applied. A timeout was performed identifying the correct patient, operative extremity, and procedure. At this point fluoroscopy was brought in to take preoperative images of the pelvis and operative hip. Using the standing AP pelvis from the office as a template, a comparable image was obtained with fluoroscopy. A metallic bar was used to create a bi-ischial line for use as a reference to leg length adjustments during the procedure. Global offset was also measured on both the operative and nonoperative leg. Fluoroscopy was then brought out and a pre-scrub using a chlorhexidine scrub brush was performed. The operative limb was then prepped and draped in the standard sterile fashion. An anterior longitudinal incision was made lateral and distal to the ASIS. The skin and subcutaneous tissues were incised sharply. The underlying tensor fascia was identified and incised in its midportion. The fascia was dissected free from the underlying muscle and the muscle belly was retracted. A blunt tipped cobra retractor was placed over the superior neck under the muscle fibers of the gluteus minimus. The deep enveloping fascia of the tensor was incised. The anterior leash of vessels were then identified and cauterized. The fascia between the rectus and the capsule was then incised and the pre-capsular fat was excised. A second Cobra was placed inferior to the neck. The interval between the rectus and iliocapsularis and the hip capsule was developed and a retractor was placed carefully over the anterior rim of the acetabulum. A T-shaped anterior capsulotomy was performed. The superior capsular leaflet was left in place in the inferior capsular flap was excised. The Cobra retractors were placed intracapsularly. We then made a femoral neck osteotomy according to preoperative and intraoperative templating and confirmed the level of the osteotomy using fluoroscopic imaging. The femoral head was removed, passed off to the back table, and sized. The superior capsular flap was excised. Retractors were placed circumferentially exposing the acetabulum. We then circumferentially debrided the acetabulum free of labrum and osteophytes. The pulvinar was removed to fully visualize the cotyloid fossa. We then sequentially reamed to achieve peripheral fit and excellent bleeding subchondral bone. The socket was thoroughly irrigated. The acetabular component was impacted into the appropriate position using fluoroscopy to guide version, inclination, and depth of insertion taking care to have a comparable image of the AP pelvis to the standing image taken in the office. An excellent press-fit was achieved and final position was confirmed using fluoroscopy. The press fit was augmented with bony cancellus dome screws. Due to the patient's lumbar sp ine pathology I elected to use a dual-mobility liner. The liner was then impacted into the socket. Attention was then turned to the femur. The remnant dorsal lateral capsule was excised. The short external rotators were visible and protected. A bone hook was used to confirm appropriate translation of the trochanter away from the acetabulum. The leg was then extended and adducted and the bone hook was used to elevate the femur for broaching. A box osteotome and blunt tipped canal sound was then utilized to gain access to the femoral canal. We then sequentially broached the femur in appropriate anteversion until excellent torsional stability was achieved. The neck cut was brought flush to the trial broach with a calcar planar. A trial neck and head were then placed onto the broach and the hip was atraumatically reduced under direct visualization. External rotation to 90 was performed to assess stability. Fluoroscopy was brought in. An AP and lateral fluoroscopic image of the proximal femur was obtained to assess position and fill of the trial broach. An AP of the pelvis was then obtained and matched to the preoperative image taken. A bi-ischial bar was then placed and measurements were taken to assess changes in length and offset. The hip was then carefully dislocated, the proximal femur was exposed, and the trial implants were removed. The wound and proximal femur was thoroughly irrigated using sterile saline and pulsatile lavage. The final femoral implant was dispensed and gently tapped into place generating an excellent press-fit. The trunnion was cleansed and the final head was tapped into place to engage the Iyer taper. The acetabulum was irrigated and visualized to be free of debris. The hip was carefully reduced. Stability was checked clinically with external rotation to 90 and there was no evidence of instability. Final fluoroscopic images were taken. The wound was then thoroughly irrigated and soaked with a dilute Betadine rinse for 3 minutes. 3 L of sterile saline was irrigated through the wound using pulsatile lavage. Local anesthetic cocktail was injected into the soft tissues around the surgical field. A deep drain was placed. The wound was then closed in layers. A sterile dressing was placed over the surgical incision and drain site. Due to the patient's adipose tissue over the hip, I elected to use a Prevena Incisional wound VAC. Her wound measured 15-cm. The drapes were taken down and the patient was carefully transferred off of the Mcdonald table. Following removal of the boots the leg lengths felt acceptable. The patient was then taken to recovery room having tolerated the procedure well. Angel Harrison PA-C was required as a skilled assistant professor of mathematics for patient positioning, surgical exposure, retraction, placement of implants, and closure of the surgical wound. PLAN: The patient can weight-bear as tolerated on the operative extremity. 2 doses of postoperative antibiotics. DVT prophylaxis with aspirin 81 mg twice a day based on preoperative risk stratification. Physical therapy for gait training. Discontinue drain postoperative day #1 if output is less than 100 mL per shift. Will treat the patient with 2-weeks of doxycycline 100 mg BID due to amount of adipose tissue around the incision to lower the risk of infection per recent literature.
[2021-05-23] MEDS ORDERED: SODIUM CHLORIDE 0.9% 500 ML 500 ML IV ONE (18:37)
[2021-05-23] MEDS: HYDROcodone/APAP 5-325MG 1 EACH TAB PO PRN (21:33)
[2021-05-23] MEDS: SENNOSIDES-DOCUSATE SODIUM 1 EACH TAB PO SCH (21:33)
[2021-05-23] MEDS: ASPIRIN 81 MG PO SCH (21:34)
[2021-05-24] MEDS: HYDROcodone/APAP 5-325MG 1 EACH TAB PO PRN ×4 (02:10→20:08)
[2021-05-24] MEDS: LACTATED RINGERS 1,000 ML IV SCH ×3 (04:39→12:30)
[2021-05-24] MEDS ORDERED: diphenhydrAMINE 50 MG/ML 1 ML VIAL IVP STA (08:30)
[2021-05-24] MEDS ORDERED: methylPREDNISolone SOD SUCCI 40 MG/ML 1 ML VIAL IV STA (08:34)
--- NOTE | 2021-05-24 08:51 | XR ---
EXAMINATION TYPE: XR chest 1V portable DATE OF EXAM: 05/24/2021 COMPARISON: Chest x-ray 11/14/2017 HISTORY: Shortness of breath TECHNIQUE: Single frontal view of the chest is obtained. FINDINGS: There is a markedly dilated esophagus with air density, lap band is in place with soft tis linda density present distally. Marked rib deformities are present on the right and are chronic. Postop changes noted to the right clavicle. No evident pneumothorax or pleural effusion. Cardiac mediastina l silhouette shows no enlargement of the heart. IMPRESSION: Correlate for possible obstruction at the level the lap band. Remote traumatic injuries.
[2021-05-24] MEDS: ASPIRIN 81 MG PO SCH ×2 (10:37→20:08)
[2021-05-24 11:25] LABS: African American GFR (CKD) 89 (>60 ml/min/1.73 sqM); Anion Gap 4 mmol/L; Blood Urea Nitrogen 20 mg/dL (7-17); Calcium 8.3 mg/dL (8.4-10.2); Carbon Dioxide 24 mmol/L (22-30); Chloride 106 mmol/L (98-107); Glucose 118 mg/dL (74-99); Non-African American GFR(CKD) 77 (>60 ml/min/1.73 sqM); Potassium 4.1 mmol/L (3.5-5.1); Sodium 134 mmol/L (137-145)
[2021-05-24 11:52] LABS: Basophils # (A) 0.02 X 10*3/uL (0.00-0.10); Basophils % (A) 0.1 %; Eosinophils # (A) 0 X 10*3/uL (0.04-0.35); Eosinophils % (A) 0 %; HCT 26.9 % (37.2-46.3); HGB 8.2 g/dL (12.0-15.0); Immature Grans, Automated 0.4 %; Lymphocytes # (A) 1.63 X 10*3/uL (0.90-5.00); Lymphocytes % (A) 7.9 %; MCHC 30.5 g/dL (32.0-37.0); MCV 88.5 fL (80.0-97.0); Mean Platelet Volume 11.5 fL (9.5-12.2); Monocytes # (A) 0.93 X 10*3/uL (0.20-1.00); Monocytes % (A) 4.5 %; NRBC Per 100 WBC 0 /100 WBCS (0.0-0.0); Neutrophils # (A) 17.86 X 10*3/uL (1.80-7.70); Neutrophils % (A) 87.1 %; Platelet Count 87 X 10*3/uL (140-440); RBC 3.04 X 10*6/uL (4.10-5.20); RDW 16.6 % (11.5-14.5); WBC 20.52 X 10*3/uL (4.50-10.00)
[2021-05-24] MEDS: DEXAMETHASONE SOD PHOSPHATE 4 MG/ML 1 ML VIAL IVP SCH ×3 (12:18→23:56)
[2021-05-24 12:43] LABS: Anisocytosis Slight; Basophils % (A) 0 %; Eosinophils % (A) 0 %; HCT 27.7 % (34.0-46.0); Hypochromasia Slight; Lymphocytes # (A) 1.4 k/uL (1.0-4.8); Lymphocytes % (A) 8 %; MCH 27.9 pg (25.0-35.0); MCHC 31.6 g/dL (31.0-37.0); MCV 88.4 fL (80.0-100.0); Mean Platelet Volume 10.1; Monocytes # (A) 0.6 k/uL (0-1.0); Monocytes % (A) 4 %; Neutrophils # (A) 14.6 k/uL (1.3-7.7); Neutrophils % (A) 87 %; Platelet Count 139 k/uL (150-450); RBC 3.14 m/uL (3.80-5.40); RDW 16.3 % (11.5-15.5); WBC 16.7 k/uL (3.8-10.6)
[2021-05-24 12:55] LABS: HGB 8.8 gm/dL (11.4-16.0)
--- NOTE | 2021-05-24 13:10 | P.PN ---
Subjective Progress Note Date: 05/24/21 This patient is a 65- year old female who is status-post left total hip arthroplasty on 05/23/21. Today is post-operative day #1. Patient is seen and examined bedside. Patient states she is short of breath this morning, symptoms started about 15 minutes ago after eating breakfast. Patient was walking last evening with a walker with no pain in the left hip. She has no pain in the left hip at this time. Patient denies chest pain, nausea, vomiting, fevers, chills. Patient has been mildly hypotensive overnight, otherwise vitals normal. Objective - Vital Signs Vital signs: Vital Signs Temp 97.9 F 05/24/21 08:00 Pulse 77 05/24/21 08:00 Resp 18 05/24/21 08:00 BP 91/58 05/24/21 08:00 Pulse Ox 95 05/24/21 08:00 Intake & Output 05/23/21 05/24/21 05/24/21 18:59 06:59 18:59 Intake Total 2300 Output Total 300 360 Balance 2000 -360 Weight 93.8 kg Intake: IV 2300 Output: Drainage 160 Left Hip 160 Urine 200 Estimated Blood Loss 300 Other: # Voids 3 # Bowel Movements 0 - Exam On examination, patient is sitting up in bed in no apparent distress. She is alert and oriented 3. Patient is short of breath. On inspection of the left hip, there is a Prevena wound VAC in place that has a good seal at this time. Hemovac drain in place. There is mild swelling of the thigh, the thigh soft and compressible. Dorsalis pedis pulse +2. The left lower extremity warm and well perfused with brisk capillary refill distally. Motor and sensory function is intact of the left lower extremity. Calves are soft and nontender to palpation. - Labs CBC & Chem 7: 05/24/21 10:23 05/24/21 10:23 Labs: Abnormal Lab Results - Last 24 Hours (Table) 05/24/21 05/24/21 Range/Units 04:27 10: WBC 20.52 H (4.50-10.00) X 10*3/uL RBC 3.04 L (4.10-5.20) X 10*6/uL Hgb 8.2 L (12.0-15.0) g/dL Hct 26.9 L (37.2-46.3) % MCHC 30.5 L (32.0-37.0) g/dL RDW 16.6 H (11.5-14.5) % Plt Count 87 L (140-440) X 10*3/uL Immature Gran # 0.08 H (0.00-0.04) X 10*3/uL Neutrophils # 17.86 H (1.80-7.70) X 10*3/uL Eosinophils # 0 L (0.04-0.35) X 10*3/uL Sodium 134 L (137-145) mmol/L BUN 20 H (7-17) mg/dL Glucose 118 H (74-99) mg/dL Calcium 8.3 L (8.4-10.2) mg/dL Assessment and Plan Assessment: Status-post left total hip arthroplasty on 05/23/21. Post-operative day #1. Plan: - Chest x-ray ordered per internal medicine team to evaluation patient's shortness of breath. Appreciate recommendations. - Weight bear as tolerated on operative leg with a walker. - Keep Prevena wound vac in place. Keep hemovac drain in place until tomorrow. - Pain medication as needed. Aspirin 81mg BID for DVT prophylaxis. - Post-operative IV antibiotics complete. Doxycycline 100g BID x 2 weeks for wound healing prophylaxis. - Will follow patient closely. Anticipate discharge home tomorrow, if medically cleared.
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
--- NOTE | 2021-05-24 14:38 | P.CONS ---
History of Present Illness - Reason for Consult Consult date: 05/24/21 - History of Present Illness This is a pleasant 65 year old female with past medical history significant for Fibromyalgia, GERD/Reflux, Osteoarthritis, Accident in 2018; fell off horse, broke 11 tribs, fractured clavicle with ORIF and punctured lung with chest tube placement, chronic back pain. Patient with multiple surgeries including; bladder suspension, abdominal hernia repair with lap band in 2004, partial hysterectomy, Lasik eye surgery, and upper dental implants. Patient does have problems with anesthesia, a former smoker quit smoking 27 years old, smoked for 8 to 10 years, uses occasional marijuana gummies for pain. Family history significant for breast cancer, hypertension, heart disease. Patient full code with no known ALLERGIES. Medications include Effexor, gabapentin, Robaxin, [place], vitamin D3, multivitamin and Celebrex. Patient up to date influenza, shingles, pneumonia vaccinations, did not receive Covid vaccination. Patient admitted this hospitalization for left direct anterior total hip arthroplasty due to left hip osteoarthritis with application of a wound VAC to the left hip incision. Follow up chest xray post operatively reveals correlate for possible obstruction at the level of the LAP-BAND, remote traumatic injuries. There is a markedly dilated esophagus with air density LAP-BAND is in place with soft tissue density present distally. Surgical has been consulted for possible lap band obstruction. Patient has recently seen Dr. Mcdowell in the office, and also underwent EGD 2 years ago for a possible lap band obstruction at that time obstruction was ruled out. She denies any nausea vomiting or diarrhea at home. She is tolerating diet well at home. No abdominal pain. Labs yesterday show unremarkable blood count panel, COVID Not detected. This morning patient was eating breakfast after ingesting one bite of egg substitute patient began to have respiratory distress with itching on her upper chest wall. She was given a dose of IV steroids and IV Benadryl with resolution of symptoms. She denies any food ALLERGIES or family history of any food ALLERGIES. She is able to get to 2000 on her IS. REVIEW OF SYSTEMS: CONSTITUTIONAL: No fever, no malaise, no fatigue. HEENT: No recent visual problems or hearing problems. Denied any sore throat. CARDIOVASCULAR: No chest pain, orthopnea, PND, no palpitations, no syncope. PULMONARY: No shortness of breath, no cough, no hemoptysis. GASTROINTESTINAL: No diarrhea, no nausea, no vomiting, no abdominal pain. NEUROLOGICAL: No headaches, no weakness, no numbness. HEMATOLOGICAL: Denies any bleeding or petechiae. GENITOURINARY: Denies any burning micturition, frequency, or urgency. MUSCULOSKELETAL/RHEUMATOLOGICAL: Denies any joint pain, swelling, or any muscle pain ENDOCRINE: Denies any polyuria or polydipsia. The rest of the 14-point review of systems is negative. PHYSICAL EXAMINATION: GENERAL: The patient is alert and oriented x3, not in any acute distress. Well developed, well nourished. Obese. HEENT: Pupils are round and equally reacting to light. EOMI. No scleral icterus. No conjunctival pallor. Normocephalic, atraumatic. No pharyngeal erythema. No thyromegaly. CARDIOVASCULAR: S1 and S2 present. No murmurs, rubs, or gallops. PULMONARY: Chest is clear to auscultation, no wheezing or crackles. ABDOMEN: Soft, nontender, nondistended, normoactive bowel sounds. No palpable organomegaly. MUSCULOSKELETAL: No joint swelling or deformity. EXTREMITIES: No cyanosis, clubbing, or pedal edema. +2 Dorsalis Pedis Pulses. NEUROLOGICAL: Gross neurological examination did not reveal any focal deficits. SKIN: No rashes. Post surgical hip with wound vac in place. Assessment and plan Assessment Possible allergic reaction to egg substitute s/p steroids and benadryl with resolution of symptoms Left hip osteoarthritis s/p Left hip arthroplasty POD #1 Postoperative hypotension, on IV fluids Leukocytosis most likely reactive to recent surgery Hyponatremia, repeat tomorrow Postoperative anemia, no signs of bleed, continue to monitor, currently stable at 8.8 History traumatic fall from horse with chronic back pain History Gastroesophageal reflux disease, not on medication, no symptoms since LAP band Lap Band in 2004 with possible obstruction on xray, surgical consult. History Fibromyalgia on Effexor GI Prophylaxis DVT Prophylaxis as per primary service Full Code Plan IV fluids Monitor BP Surgical Consult Clear liquid diet PT/OT Resume home medications Repeat labs in the AM Baseline EKG; pt on zofran and effexor which can cause QT prolongation Thank you for this consultation we will continue to follow along. Past Medical History Past Medical History: Fibromyalgia, GERD/Reflux, Musculoskeletal Disorder, Osteoarthritis (OA) Additional Past Medical History / Comment(s): Hx white coat syndrome causes HTN; Fell off horse 2017 w broken ribs, fx clavicle, & punctured lung. Chronic Pain in lower back. History of Any Multi-Drug Resistant Organisms: None Reported Past Surgical History: Bariatric Surgery, Bladder Surgery, Cholecystectomy, Hernia Repair, Hysterectomy, Orthopedic Surgery Additional Past Surgical History / Comment(s): bladder suspension, abd hernia repair w/ lap band (2004). partial hysterectomy, lasik eye sx, upper dental implant, chest tube for punctured lung, ORIF clavicle surgery with renetta. Past Anesthesia/Blood Transfusion Reactions: Previous Problems w/ Anesthesia, Motion Sickness Additional Past Anesthesia/Blood Transfusion Reaction / Comm: During clavicle surg she woke up with tube in her throat and they had to restrain her. Claustrophobic Past Psychological History: No Psychological Hx Reported Additional Psychological History / Comment(s): states effexor taken for fibromyalgia Smoking Status: Former smoker Past Alcohol Use History: Occasional Additional Past Alcohol Use History / Comment(s): quit smoking at 27 yrs old, smoked 8-10 years. Past Drug Use History: Marijuana Additional Drug Use History / Comment(s): occ marijuana gummy for pain - Past Family History Mother Family Medical History: Cancer Additional Family Medical History / Comment(s): breast cancer Father Family Medical History: No Reported History Additional Family Medical History / Comment(s): when pt was young from a mva Brother(s) Family Medical History: Myocardial Infarction ([place]) Medications and Allergies Home Medications Medication Instructions Recorded Confirmed Type Gabapentin [Neurontin] 600 mg PO TID 03/02/19 05/23/21 History Venlafaxine HCl ER [Effexor Xr] 75 mg PO DAILY 03/02/19 05/23/21 History Celecoxib [CeleBREX] 200 mg PO BID 05/18/21 05/18/21 History Cholecalciferol [Vitamin D3 (25 25 mcg PO DAILY 05/18/21 05/18/21 History Mcg = 1000 Iu)] HYDROcodone/APAP 5-325MG [[place] 1 tab PO TID PRN 05/18/21 05/23/21 History 5-325] Pnv No.95/Ferrous Fum/Folic AC 1 each PO DAILY 05/18/21 05/18/21 History [ Multivitamin Tablet] methocarbamoL [Robaxin] 750 mg PO TID 05/18/21 05/23/21 History Allergies Allergy/AdvReac Type Severity Reaction Status Date / Time No Known Allergies Allergy Verified 05/18/21 15:21 Physical Exam Vitals: Vital Signs Temp Pulse Pulse Pulse Resp BP Pulse Ox 05/24/21 08:00 97.9 F 77 18 91/58 95 05/24/21 03:08 95/52 05/24/21 01:27 97.8 F 93 17 88/58 100 05/23/21 19:50 98.1 F 73 15 90/50 05/23/21 18:21 71 93/64 05/23/21 18:19 79 69/52 05/23/21 17:37 97.8 F 76 16 92/68 94 L 05/23/21 17:00 63 16 95/60 97 05/23/21 16:35 76 17 123/68 97 05/23/21 16:20 62 16 122/78 100 05/23/21 16:05 65 16 124/73 100 05/23/21 15:50 96.8 F L 67 16 147/71 100 05/23/21 11:24 97.8 F 80 16 173/80 99 Intake and Output 05/23/21 05/24/21 05/24/21 22:59 06:59 14:59 Intake Total 1000 Output Total 360 Balance 1000 -360 Intake: IV 1000 Output: Drainage 160 Left Hip 160 Urine 200 Other: # Voids 3 # Bowel Movements 0 Weight 93.8 kg Results CBC & Chem 7: 05/24/21 10:23 05/24/21 10:23 Labs: Abnormal Lab Results - Last 24 Hours (Table) 05/23/21 Range/Units 11:39 RDW 16.0 H (11.5-15.5) % Assessment and Plan Time with Patient: Greater than 30
[2021-05-24] MEDS: SENNOSIDES-DOCUSATE SODIUM 1 EACH TAB PO SCH (20:08)
[2021-05-25] MEDS: HYDROcodone/APAP 5-325MG 1 EACH TAB PO PRN ×2 (00:04→11:18)
[2021-05-25] MEDS: LACTATED RINGERS 1,000 ML IV SCH ×3 (04:31→07:22)
[2021-05-25] MEDS: DEXAMETHASONE SOD PHOSPHATE 4 MG/ML 1 ML VIAL IVP SCH ×2 (05:49→11:49)
[2021-05-25 08:51] VITALS: BP 106/66; PULSE 88; RESP 18; TEMP 98.1
[2021-05-25] MEDS ORDERED: VENLAFAXINE HCL ER 75 MG CAP PO SCH (09:00)
[2021-05-25] MEDS: ASPIRIN 81 MG PO SCH (09:01)
[2021-05-25 09:45] LABS: African American GFR (CKD) 116.9 (60.0-200.0); Anion Gap 9.3 mmol/L (10.00-18.00); BUN/Creat Ratio 33.2 Ratio (12.00-20.00); Blood Urea Nitrogen 16.6 mg/dL (9.0-27.0); Calcium 8.3 mg/dL (8.7-10.3); Carbon Dioxide 21.7 mmol/L (20.0-27.5); Non-African American GFR(CKD) 100.9 (60.0-200.0)
--- NOTE | 2021-05-25 10:24 | P.PN ---
Subjective Progress Note Date: 05/25/21 CHIEF COMPLAINT: Dysphagia shortness of breath HISTORY OF PRESENT ILLNESS: Patient reports her swallowing is better today. I'm she had improvement after steroids and Benadryl. Patient feels that she may have had an ALLERGIC reaction. She is tolerating diet. Denies any pain at the lap band port site. She is scheduled for discharge later today. Afebrile. CBC pending Patient seen and examined with Dr. soto PHYSICAL EXAM: VITAL SIGNS: Reviewed. GENERAL: Well-developed in no acute distress. HEENT: No sclera icterus. Extraocular movements grossly intact. Moist buccal mucosa. Head is atraumatic, normocephalic. ABDOMEN: Soft. Nondistended. Nontender. NEUROLOGIC: Alert and oriented. Cranial nerves II through XII grossly intact. ASSESSMENT: 1. Possible lap band port obstruction. No evidence of dysphagia. Tolerating diet 2. Possible ALLERGIC reaction to eggs 3. Status post Left total hip arthroplasty PLAN: -Patient can be discharged from surgical standpoint when medically cleared -Patient to follow-up in the Bariatric center in 3 weeks -No need to remove any fluid from lap band port Physician Switchbox Assembler note has been reviewed by physician. Signing provider agrees with the documented findings, assessment, and plan of care. Objective - Vital Signs Vital signs: Vital Signs Temp 98.1 F 05/25/21 08:00 Pulse 88 05/25/21 08:00 Resp 18 05/25/21 08:00 BP 106/66 05/25/21 08:00 Pulse Ox 95 05/25/21 08:00 Intake & Output 05/24/21 05/25/21 05/25/21 18:59 06:59 18:59 Intake Total 800 500 Output Total 20 Balance 780 500 Intake: Intake, IV Titration 300 Amount Lactated Ringers 1,000 ml 300 @ 100 mls/hr IV .Q10H RACHEL Rx#:[id number] Oral 500 500 Output: Drainage 20 Left Hip 20 Other: Voiding Method Toilet # Voids 3 3 # Bowel Movements 0 - Labs CBC & Chem 7: 05/24/21 10:23 05/25/21 05:06 Labs: Abnormal Lab Results - Last 24 Hours (Table) 05/24/21 05/24/21 05/24/21 Range/Units 04:27 10:23 10:23 WBC 20.52 H 16.7 H (4.50-10.00) X 10*3/uL RBC 3.04 L 3.14 L (4.10-5.20) X 10*6/uL Hgb 8.2 L 8.8 L D (12.0-15.0) g/dL Hct 26.9 L 27.7 L (37.2-46.3) % MCHC 30.5 L (32.0-37.0) g/dL RDW 16.6 H 16.3 H (11.5-14.5) % Plt Count 87 L 139 L (140-440) X 10*3/uL Immature Gran # 0.08 H (0.00-0.04) X 10*3/uL Neutrophils # 17.86 H 14.6 H (1.80-7.70) X 10*3/uL Eosinophils # 0 L (0.04-0.35) X 10*3/uL Sodium 134 L (137-145) mmol/L Anion Gap (10.00-18.00) mmol/L BUN 20 H (7-17) mg/dL Creatinine (0.6-1.5) mg/dL BUN/Creatinine Ratio (12.00-20.00) Ratio Glucose 118 H (74-99) mg/dL Calcium 8.3 L (8.4-10.2) mg/dL 05/25/21 Range/Units 05:06 WBC (4.50-10.00) X 10*3/uL RBC (4.10-5.20) X 10*6/uL Hgb (12.0-15.0) g/dL Hct (37.2-46.3) % MCHC (32.0-37.0) g/dL RDW (11.5-14.5) % Plt Count (140-440) X 10*3/uL Immature Gran # (0.00-0.04) X 10*3/uL Neutrophils # (1.80-7.70) X 10*3/uL Eosinophils # (0.04-0.35) X 10*3/uL Sodium (137-145) mmol/L Anion Gap 9.30 L (10.00-18.00) mmol/L BUN (7-17) mg/dL Creatinine 0.5 L (0.6-1.5) mg/dL BUN/Creatinine Ratio 33.20 H (12.00-20.00) Ratio Glucose 153 H (74-99) mg/dL Calcium 8.3 L (8.4-10.2) mg/dL
--- NOTE | 2021-05-25 10:38 | P.DS ---
Providers Date of admission: 05/24/21 11:37 Expected date of discharge: 05/25/21 Attending physician: Terry Pacheco Consults: 05/23/21 16:02 Consult Physician Routine Consulting Provider: Nilsa Pickering Consult Reason/Comments: medical management Do you want consulting provider notified?: Yes 05/23/21 18:30 Consult Physician Routine Consulting Provider: Chino Nur Consult Reason/Comments: medical management Do you want consulting provider notified?: Yes 05/24/21 08:56 Consult Physician Stat Consulting Provider: Anastacio Mcdowell Consult Reason/Comments: lap band obstruction Do you want consulting provider notified?: Yes Primary care physician: [facility] Course: This is a 65-year-old female who has been followed in our office by Dr. Pacheco for continued complaints of left hip pain due to left hip osteoarthritis. Treatment options were discussed, and patient elected to undergo a left total hip arthroplasty. Patient was seen pre-operatively by Nilsa Pickering PA-C and cleared for surgery. Patient underwent a left total hip arthroplasty on 05/23/[address] Pacheco. The procedure was performed without complication or sequelae. Patient did develop mild shortness of breath post-operatively, which improved with IV benadryl and solu-medrol. The patient is doing fairly well postoperatively. Vital signs and labs are stable on postoperative day #2. Patient was examined bedside today with Dr. Pacheco. She is up to the bedside chair. Patient states she is overall doing very well and the pain in her left hip is well-controlled. Her hemovac drain was pulled earlier this morning. She has been ambulating with a walker with minimal assistance. She has worked with physical therapy this morning. She is voiding with issues. Patient is comfortable being discharged home today. Patient denies chest pain, shortness of breath, nausea, vomiting, fevers, chills. On examination, the patient is sitting up in the bedside chair in no apparent distress. She is alert and orientated 3. On inspection of the left hip, there is a P[place] wound vac in place that has a good seal. Mild swelling of the thigh, the thigh is soft and compressible. Patient has good strength and ROM of the left ankle and toes. Motor and sensory function is intact of the left lower extremity. The left lower extremity is warm and well perfused with brisk capillary refill. Calf is soft and non-tender to palpation. Patient is discharged home with home health in good condition, pending medical clearance today. Patient will follow-up with Dr. Pacheco in the office in 1 week. Please see med rec for accurate list of discharge medication. Plan - Discharge Summary Discharge Rx Participant: No New Discharge Prescriptions: New Aspirin 81 mg PO BID 30 Days #60 tab HYDROcodone/APAP 5-325MG [[place] 5-325] 1 tab PO Q6HR PRN 7 Days #28 tab PRN Reason: Pain Docusate [Colace] 100 mg PO BID #60 capsule Doxycycline Monohydrate 100 mg PO BID 14 Days #28 cap Omeprazole 40 mg PO DAILY 30 Days #30 cap Diclofenac Sodium [Voltaren] 75 mg PO BID 30 Days #60 tab No Action Venlafaxine HCl ER [Effexor Xr] 75 mg PO DAILY Gabapentin [Neurontin] 600 mg PO TID Cholecalciferol [Vitamin D3 (25 Mcg = 1000 Iu)] 25 mcg PO DAILY methocarbamoL [Robaxin] 750 mg PO TID Celecoxib [CeleBREX] 200 mg PO BID HYDROcodone/APAP 5-325MG [[place] 5-325] 1 tab PO TID PRN PRN Reason: Pain Pnv No.95/Ferrous Fum/Folic AC [ Multivitamin Tablet] 1 each PO DAILY Discharge Medication List Gabapentin [Neurontin] 600 mg PO TID 03/02/19 [History] Venlafaxine HCl ER [Effexor Xr] 75 mg PO DAILY 03/02/19 [History] Celecoxib [CeleBREX] 200 mg PO BID 05/18/21 [History] Cholecalciferol [Vitamin D3 (25 Mcg = 1000 Iu)] 25 mcg PO DAILY 05/18/21 [History] HYDROcodone/APAP 5-325MG [[place] 5-325] 1 tab PO TID PRN 05/18/21 [History] Pnv No.95/Ferrous Fum/Folic AC [ Multivitamin Tablet] 1 each PO DAILY 05/18/21 [History] methocarbamoL [Robaxin] 750 mg PO TID 05/18/21 [History] Aspirin 81 mg PO BID 30 Days #60 tab 05/25/21 [Rx] Diclofenac Sodium [Voltaren] 75 mg PO BID 30 Days #60 tab 05/25/21 [Rx] Docusate [Colace] 100 mg PO BID #60 capsule 05/25/21 [Rx] Doxycycline Monohydrate 100 mg PO BID 14 Days #28 cap 05/25/21 [Rx] HYDROcodone/APAP 5-325MG [[place] 5-325] 1 tab PO Q6HR PRN 7 Days #28 tab 05/25/21 [Rx] Omeprazole 40 mg PO DAILY 30 Days #30 cap 05/25/21 [Rx] Follow up Appointment(s)/Referral(s): [facility], [NON-STAFF] - ([facility] will call you to schedule your in home physical therapy visits. ) [facility] [place] [facility] - 3 Weeks Terry Pacheco MD [Medical Doctor] - 1 Week Activity/Diet/Wound Care/Special Instructions: Weight bear as tolerated on the operative extremity with a walker. Keep Prevena wound vac in place until follow-up appointment in the office. Take pain medications as prescribed. Take aspirin 81mg BID x 4 weeks for blood clot prevention. Take doxycycline 100mg BID x 2 weeks for wound healing prophylaxis. Follow-up in the office in one week for Prevena wound vac removal and incision check with Dr. Pacheco. Call the office with any questions or concerns, Discharge Disposition: HOME SELF-CARE
[2021-05-25 13:22] LABS: Basophils # (A) 0.01 X 10*3/uL (0.00-0.10); Basophils % (A) 0.1 %; Eosinophils # (A) 0 X 10*3/uL (0.04-0.35); Eosinophils % (A) 0 %; HCT 21.9 % (37.2-46.3); HGB 6.8 g/dL (12.0-15.0); Immature Grans, Automated 0.4 %; Lymphocytes # (A) 0.93 X 10*3/uL (0.90-5.00); Lymphocytes % (A) 6.6 %; MCH 26.7 pg (27.0-32.0); MCHC 31.1 g/dL (32.0-37.0); MCV 85.9 fL (80.0-97.0); Monocytes # (A) 0.58 X 10*3/uL (0.20-1.00); Monocytes % (A) 4.1 %; NRBC Per 100 WBC 0 /100 WBCS (0.0-0.0); Neutrophils # (A) 12.62 X 10*3/uL (1.80-7.70); Neutrophils % (A) 88.8 %; RBC 2.55 X 10*6/uL (4.10-5.20); RDW 16.7 % (11.5-14.5); WBC 14.19 X 10*3/uL (4.50-10.00)
[2021-05-25 13:23] LABS: Immature Platelet Fraction 15.9 % (1.1-6.1); Microcytosis (M) 2+
== END 2021-05-25 13:16 | disposition home or self-care (01) ==
LOC: OR 11:04 → 4SSUR 17:00 → OR 05-24 11:20 → 4SSUR 05-24 11:37
PROVIDERS: ADMIT Orthopaedic Surgery; ATTEND Orthopaedic Surgery
DX: M16.12 Unilateral primary osteoarthritis, left hip (principal); E87.1 Hypo-osmolality and hyponatremia; I95.81 Postprocedural hypotension; E65 Localized adiposity; M79.7 Fibromyalgia; R13.10 Dysphagia, unspecified; R06.02 Shortness of breath; L29.9 Pruritus, unspecified; K21.9 Gastro-esophageal reflux disease without esophagitis; F33.9 Major depressive disorder, recurrent, unspecified; G89.29 Other chronic pain; M54.50 Low back pain, unspecified; F40.240 Claustrophobia; Z20.822 Contact with and (suspected) exposure to COVID-19; Z79.1 Long term (current) use of non-steroidal anti-inflammatories (NSAID); Z79.899 Other long term (current) drug therapy; Z98.84 Bariatric surgery status; Z90.49 Acquired absence of other specified parts of digestive tract; Z90.711 Acquired absence of uterus with remaining cervical stump; Z91.81 History of falling; Z87.828 Personal history of other (healed) physical injury and trauma; Z98.51 Tubal ligation status; Z87.891 Personal history of nicotine dependence; Z87.81 Personal history of (healed) traumatic fracture; Z98.890 Other specified postprocedural states; Z80.3 Family history of malignant neoplasm of breast; Z82.49 Family history of ischemic heart disease and other diseases of the circulatory system
CPT/HCPCS: 27130; 97607; 93005 ×2; 97116; 97530; 97161; 97535; 97165; 86900; 86901; 80048 ×2; 85025 ×3; 86850; 88300; 87635; 73501; 71045; G0378 ×2; C1776; J2250; J3370; J1200; J1100 ×3; J2710; J2920; J0690 ×2; J2405; J2001; J3010; J1170; J1885; J2370; J0330; J2704

== ENCOUNTER 2021-05-25 22:00 | Emergency (ER) | payer MEDICARE ==
[2021-05-25] MEDS ORDERED: FAMOTIDINE 20 MG/2 ML VIAL IV STA (22:19)
[2021-05-25] MEDS ORDERED: ONDANSETRON 4 MG/2 ML VIAL IVP STA (22:20)
--- NOTE | 2021-05-25 22:45 | ED ---
General Adult HPI <Kenny Malinna - Last Filed: 05/25/21 23:28> <Christa Ch - Last Filed: 05/26/21 05:49> - General Stated complaint: low hemoglobin, hip pain Time Seen by Provider: 05/25/21 22:02 - History of Present Illness Initial comments: She is a 65-year-old female who presents with a low hemoglobin status post left total hip arthroplasty on 05/23/21. Patient reports she was discharged this morning and felt well. Patient reports that she got a call later in the day regarding her hemoglobin result which was 6.8. Patient was instructed to report to the emergency department if she had any concerns or worsening symptoms. Patient was hanging out with her family when she felt blood running down her leg from the incision where the drainage tube was previously placed. Patient became concerned at this time and called the ambulance for emergency evaluation. Currently she denies fever, chills, shortness of breath, chest pain, dizziness, light headedness palpitations, abdominal pain, nausea, vomiting, diarrhea, constipation, and bilateral leg pain. She does note some indigestion from eating tomato soup today. (Venus Malin) - Related Data Home Medications Medication Instructions Recorded Confirmed Gabapentin [Neurontin] 600 mg PO TID 03/02/19 05/25/21 Venlafaxine HCl ER [Effexor Xr] 75 mg PO DAILY 03/02/19 05/25/21 Celecoxib [CeleBREX] 200 mg PO BID 05/18/21 05/25/21 Cholecalciferol [Vitamin D3 (25 25 mcg PO DAILY 05/18/21 05/25/21 Mcg = 1000 Iu)] HYDROcodone/APAP 5-325MG [[place] 1 tab PO Q6H PRN 05/18/21 05/25/21 5-325] Pnv No.95/Ferrous Fum/Folic AC 1 tab PO DAILY 05/18/21 05/25/21 [ Multivitamin Tablet] methocarbamoL [Robaxin] 750 mg PO TID PRN 05/18/21 05/25/21 Aspirin 81 mg PO DAILY 05/25/21 05/25/21 Previous Rx's Medication Instructions Recorded Diclofenac Sodium [Voltaren] 75 mg PO BID 30 Days #60 tab 05/25/21 Docusate [Colace] 100 mg PO BID #60 capsule 05/25/21 Doxycycline Monohydrate 100 mg PO BID 14 Days #28 cap 05/25/21 Omeprazole 40 mg PO DAILY 30 Days #30 cap 05/25/21 Allergies Allergy/AdvReac Type Severity Reaction Status Date / Time No Known Allergies Allergy Verified 05/25/21 22:48 Review of Systems ROS Other: All systems not noted in ROS Statement are negative. <Venus Malin - Last Filed: 05/25/21 23:28> ROS Other: All systems not noted in ROS Statement are negative. <Christa Ch - Last Filed: 05/26/21 05:49> ROS Statement: Those systems with pertinent positive or pertinent negative responses have been documented in the HPI. Past Medical History Past Medical History: Fibromyalgia, GERD/Reflux, Musculoskeletal Disorder, Osteoarthritis (OA) Additional Past Medical History / Comment(s): Hx white coat syndrome causes HTN; Fell off horse 2017 w/ broken ribs, fx clavicle, & punctured lung. Chronic Pain in lower back. History of Any Multi-Drug Resistant Organisms: None Reported Past Surgical History: Bariatric Surgery, Bladder Surgery, Cholecystectomy, Hernia Repair, Hysterectomy, Orthopedic Surgery Additional Past Surgical History / Comment(s): bladder suspension, abd hernia repair w/ lap band (2004). partial hysterectomy, lasik eye sx, upper dental implant, chest tube for punctured lung, ORIF clavicle surgery with renetta. Past Anesthesia/Blood Transfusion Reactions: Previous Problems w/ Anesthesia, Motion Sickness Additional Past Anesthesia/Blood Transfusion Reaction / Comment(s): During clavicle surg she woke up with tube in her throat and they had to restrain her. Claustrophobic Past Psychological History: No Psychological Hx Reported Additional Psychological History / Comment(s): states effexor taken for fibr omyalgia Smoking Status: Former smoker Past Alcohol Use History: Occasional Additional Past Alcohol Use History / Comment(s): quit smoking at 27 yrs old, smoked 8-10 years. Past Drug Use History: Marijuana Additional Drug Use History / Comment(s): occ marijuana gummy for pain - Past Family History Mother Family Medical History: Cancer Additional Family Medical History / Comment(s): breast cancer Father Family Medical History: No Reported History Additional Family Medical History / Comment(s): when pt was young from a mva Brother(s) Family Medical History: Myocardial Infarction ([place]) <Kenny Malinna - Last Filed: 05/25/21 23:28> General Exam General appearance: alert, in no apparent distress Head exam: Present: atraumatic, normocephalic, normal inspection Eye exam: Present: normal appearance, PERRL, EOMI. Absent: scleral icterus, conjunctival injection, periorbital swelling Respiratory exam: Present: normal lung sounds bilaterally. Absent: respiratory distress, wheezes, rales, rhonchi, stridor Cardiovascular Exam: Present: regular rate, normal rhythm, normal heart sounds. Absent: systolic murmur, diastolic murmur, rubs, gallop, clicks GI/Abdominal exam: Present: soft. Absent: distended, tenderness, guarding, rebound, rigid Left Upper Leg exam: Present: erythema (Mild erythema around drainage tube incision, likely due to surgery. No active bleeding. Patient has a 1 drainage tube intact, no bleeding erythema or swelling surrounding the tube.). Absent: full ROM, tenderness, swelling, ecchymosis, deformity Neurological exam: Present: alert, oriented X3, CN II-XII intact Psychiatric exam: Present: normal affect, normal mood Skin exam: Present: warm, dry, intact, normal color. Absent: rash <DeaKenny mancerana - Last Filed: 05/25/21 23:28> Course Vital Signs 05/25/21 05/25/21 02 22:43 23:36 02:11 Temperature 98.0 F Pulse Rate 85 65 84 Respiratory 18 18 18 Rate Blood Pressure 170/88 149/82 135/71 O2 Sat by Pulse 100 97 97 Oximetry Medical Decision Making <Venus Malin - Last Filed: 05/25/21 23:28> - Lab Data Result diagrams: 05/25/21 23:22 05/25/21 23:22 - EKG Data -: EKG Interpreted by Me <Christa Ch - Last Filed: 05/26/21 05:49> - Medical Decision Making This is a 65-year-old female who presents with low hemoglobin status post left total hip arthroplasty on 05/23/21. Patient is hemodynamically stable. Thorough history and physical examination were performed. During my examination patient did experience nausea. Zofran was given. Care handed off to Christa Ch NP at 23:19. (Venus Malin) Took over care of patient from Venus Malin PA-c at 2319. I did review labs which showed a hemoglobin at 8.2. Other labs are unremarkable. Vital signs are reviewed and were within normal range. I did reevaluate the patient is resting comfortably in bed. Reporting very mild nausea at this time. Did review examine the wound showed no evidence for current bloody discharge. Her wound VAC is in place, is making an abnormal sound nursing staff was able to fix this. I did contact Dr. Pacheco discussed the case with him he is comfortable with her being discharged at this time. I did review all results with the patient. She did raise concern over abnormal EKG obtained and EMS. We repeated EKG here which showed normal sinus rhythm. She'll be discharged to follow-up with her primary care physician and surgeon for further evaluation as soon as possible. Return parameters were discussed in detail. She verbalizes understanding and agrees with this plan. My attending is Dr. Garcia. (Christa Ch) - Lab Data Lab Results 05/25/21 05/25/21 05/25/21 Range/Units 23:20 23:22 23:22 WBC 17.2 H (3.8-10.6) k/uL RBC 2.86 L (3.80-5.40) m/uL Hgb 8.2 L (11.4-16.0) gm/dL Hct 24.9 L (34.0-46.0) % MCV 87.0 (80.0-100.0) fL MCH 28.6 (25.0-35.0) pg MCHC 32.8 (31.0-37.0) g/dL RDW 16.3 H (11.5-15.5) % Plt Count 181 (150-450) k/uL MPV 9.5 Neutrophils % 82 % Lymphocytes % 11 % Monocytes % 5 % Eosinophils % 0 % Basophils % 0 % Neutrophils # 14.1 H (1.3-7.7) k/uL Lymphocytes # 2.0 (1.0-4.8) k/uL Monocytes # 0.9 (0-1.0) k/uL Eosinophils # 0.0 (0-0.7) k/uL Basophils # 0.0 (0-0.2) k/uL Anisocytosis Slight PT 9.8 (9.0-12.0) sec INR 0.9 (<1.2) APTT 21.8 L (22.0-30.0) sec Sodium (137-145) mmol/L Potassium (3.5-5.1) mmol/L Chloride (98-107) mmol/L Carbon Dioxide (22-30) mmol/L Anion Gap mmol/L BUN (7-17) mg/dL Creatinine (0.52-1.04) mg/dL Est GFR (CKD-EPI)AfAm (>60 ml/min/1.73 sqM) Est GFR (CKD-EPI)NonAf (>60 ml/min/1.73 sqM) Glucose (74-99) mg/dL Calcium (8.4-10.2) mg/dL Total Bilirubin (0.2-1.3) mg/dL AST (14-36) U/L ALT (4-34) U/L Alkaline Phosphatase (38-126) U/L Total Protein (6.3-8.2) g/dL Albumin (3.5-5.0) g/dL Blood Type O Positive Blood Type Recheck O Pos Bld Type Recheck Status No Antibody Screen NEGATIVE Spec Expiration Date 05/28/2021 - 231905/25/21 Range/Units 23:22 WBC (3.8-10.6) k/uL RBC (3.80-5.40) m/uL Hgb (11.4-16.0) gm/dL Hct (34.0-46.0) % MCV (80.0-100.0) fL MCH (25.0-35.0) pg MCHC (31.0-37.0) g/dL RDW (11.5-15.5) % Plt Count (150-450) k/uL MPV Neutrophils % % Lymphocytes % % Monocytes % % Eosinophils % % Basophils % % Neutrophils # (1.3-7.7) k/uL Lymphocytes # (1.0-4.8) k/uL Monocytes # (0-1.0) k/uL Eosinophils # (0-0.7) k/uL Basophils # (0-0.2) k/uL Anisocytosis PT (9.0-12.0) sec INR (<1.2) APTT (22.0-30.0) sec Sodium 137 (137-145) mmol/L Potassium 3.7 (3.5-5.1) mmol/L Chloride 108 H (98-107) mmol/L Carbon Dioxide 20 L (22-30) mmol/L Anion Gap 9 mmol/L BUN 22 H (7-17) mg/dL Creatinine 0.61 (0.52-1.04) mg/dL Est GFR (CKD-EPI)AfAm >90 (>60 ml/min/1.73 sqM) Est GFR (CKD-EPI)NonAf >90 (>60 ml/min/1.73 sqM) Glucose 114 H (74-99) mg/dL Calcium 8.8 (8.4-10.2) mg/dL Total Bilirubin 0.3 (0.2-1.3) mg/dL AST 34 (14-36) U/L ALT 18 (4-34) U/L Alkaline Phosphatase 85 (38-126) U/L Total Protein 6.2 L (6.3-8.2) g/dL Albumin 3.5 (3.5-5.0) g/dL Blood Type Blood Type Recheck Bld Type Recheck Status Antibody Screen Spec Expiration Date - EKG Data EKG Comments: EKG obtained at 47 shows sinus rhythm with frequent PVCs. Ventricular is 89, MT interval 181, QRS duration 97, QT 373, QTC 419. No evidence of ST elevation or depression. (Christa Ch) Disposition <Venus Malin - Last Filed: 05/25/21 23:28> Is patient prescribed a controlled substance at d/c from ED?: No Time of Disposition: 00:48 <Christa Ch - Last Filed: 05/26/21 05:49> Clinical Impression: Low hemoglobin, Nausea Disposition: HOME SELF-CARE Condition: Good Instructions (If sedation given, give patient instructions): Acute Nausea and Vomiting (ED), Anemia (ED) Additional Instructions: Follow-up with your primary care physician and surgeon for further evaluation as soon as possible. Return to the emergency department for any new, worsening, or concerning symptoms. Referrals: Thomas Ruby DO [Primary Care Provider] - 1-2 days
[2021-05-25 22:47] VITALS: RESP 18; TEMP 98
[2021-05-25] MEDS ORDERED: diphenhydrAMINE 50 MG/ML 1 ML VIAL IVP STA (23:33)
[2021-05-25 23:45] LABS: ALT 18 U/L (4-34); AST 34 U/L (14-36); African American GFR (CKD) >90 (>60 ml/min/1.73 sqM); Albumin 3.5 g/dL (3.5-5.0); Alkaline Phosphatase 85 U/L (38-126); Anion Gap 9 mmol/L; Blood Urea Nitrogen 22 mg/dL (7-17); Calcium 8.8 mg/dL (8.4-10.2); Carbon Dioxide 20 mmol/L (22-30); Chloride 108 mmol/L (98-107); Glucose 114 mg/dL (74-99); Non-African American GFR(CKD) >90 (>60 ml/min/1.73 sqM); Potassium 3.7 mmol/L (3.5-5.1); Sodium 137 mmol/L (137-145); Total Bilirubin 0.3 mg/dL (0.2-1.3); Total Protein 6.2 g/dL (6.3-8.2)
[2021-05-25 23:52] LABS: INR 0.9 (<1.2); Partial Thromboplastin Time 21.8 sec (22.0-30.0); Prothrombin Time 9.8 sec (9.0-12.0)
[2021-05-25 23:54] LABS: Anisocytosis Slight; Basophils % (A) 0 %; Eosinophils % (A) 0 %; HCT 24.9 % (34.0-46.0); HGB 8.2 gm/dL (11.4-16.0); Lymphocytes % (A) 11 %; MCH 28.6 pg (25.0-35.0); MCHC 32.8 g/dL (31.0-37.0); Mean Platelet Volume 9.5; Monocytes # (A) 0.9 k/uL (0-1.0); Monocytes % (A) 5 %; Neutrophils # (A) 14.1 k/uL (1.3-7.7); Neutrophils % (A) 82 %; Platelet Count 181 k/uL (150-450); RBC 2.86 m/uL (3.80-5.40); RDW 16.3 % (11.5-15.5); WBC 17.2 k/uL (3.8-10.6)
[2021-05-26] MEDS ORDERED: ONDANSETRON 4 MG/2 ML VIAL IVP STA (00:47)
[2021-05-26] MEDS ORDERED: HYDROmorphone 0.5 MG/0.5 ML SYRINGE IVP STA (00:47)
[2021-05-26 02:17] VITALS: BP 135/71; PULSE 84
== END 2021-05-26 02:25 | disposition home or self-care (01) ==
LOC: EC 22:00
DX: D64.9 Anemia, unspecified (principal); R11.0 Nausea; M79.7 Fibromyalgia; K21.9 Gastro-esophageal reflux disease without esophagitis; M19.90 Unspecified osteoarthritis, unspecified site; F12.90 Cannabis use, unspecified, uncomplicated; Z87.891 Personal history of nicotine dependence; Z79.82 Long term (current) use of aspirin; Z79.899 Other long term (current) drug therapy
CPT/HCPCS: 36415; 93005; 86900; 86901; 80053; 85025; 85610; 85730; 86850; 99284; 96374; 96375 ×3; 96376; J1200; J2405 ×2; J1170

== ENCOUNTER → 2021-06-18 | Outpatient (CLI) | payer MEDICARE ==
[2021-06-18 14:47] VITALS: BP 137/85; PULSE 89; RESP 16; TEMP 98.2; BMI 31.3
--- NOTE | 2021-06-18 15:46 | P.HPBAR ---
Bariatric H&P - History & Physicial H&P Date: 06/18/21 History & Physicial: Visit/CC: band f/u Patient initial contact: Initial weight: 148.778 kg Initial weight in pounds: 328.00 Height: 5 ft 8.5 in Initial BMI: 49.1 Last weight: Current weight: 94.801 kg Current weight in pounds: 209.00 Current BMI: 31.3 [place] body weight (based on NIH guidelines): 64.637 kg Excess body weight loss: 64.1% The patient is a 65 year-old F who presents for Bariatric Assessment. Patient presents today for bariatric follow-up. She's had some mild GERD. Past Medical History Past Medical History: Fibromyalgia, GERD/Reflux, Musculoskeletal Disorder, Osteoarthritis (OA) Additional Past Medical History / Comment(s): Hx white coat syndrome causes HTN; Fell off horse 2017 w/ broken ribs, fx clavicle, & punctured lung. Chronic Pa in in lower back. History of Any Multi-Drug Resistant Organisms: None Reported Past Surgical History: Bariatric Surgery, Bladder Surgery, Cholecystectomy, Hernia Repair, Hysterectomy, Joint Replacement, Orthopedic Surgery Additional Past Surgical History / Comment(s): bladder suspension, abd hernia repair w/ lap band (2004). partial hysterectomy, lasik eye sx, upper dental implant, chest tube for punctured lung, ORIF clavicle surgery with renetta. Past Anesthesia/Blood Transfusion Reactions: Previous Problems w/ Anesthesia, Motion Sickness Additional Past Anesthesia/Blood Transfusion Reaction / Comm: During clavicle surg she woke up with tube in her throat and they had to restrain her. Claustrophobic Past Psychological History: No Psychological Hx Reported Additional Psychological History / Comment(s): states effexor taken for fibromyalgia Smoking Status: Former smoker Past Alcohol Use History: Occasional Additional Past Alcohol Use History / Comment(s): quit smoking at 27 yrs old, smoked 8-10 years. Past Drug Use History: Marijuana Additional Drug Use History / Comment(s): occ marijuana gummy for pain - Past Family History Mother Family Medical History: Cancer Additional Family Medical History / Comment(s): breast cancer Father Family Medical History: No Reported History Additional Family Medical History / Comment(s): when pt was young from a mva Brother(s) Family Medical History: Myocardial Infarction ([place]) Surgical - Exam Vital Signs Temp Pulse Resp BP 98.2 F 89 16 137/85 06/18/21 14:45 06/18/21 14:45 06/18/21 14:45 06/18/21 14:45 - General well developed, well nourished, no distress - Eyes PERRL - ENT normal pinna - Neck no masses - Respiratory normal expansion - Cardiovascular Rhythm: regular - Abdomen Abdomen: soft, non tender Bariatric Assessment & Plan Plan: Patient's GERD is minimal and will be observed. She'll follow-up in 4 weeks. Bariatric Checklist Checklist: Plan: Checklist: EGD: 1. Hiatal hernia: 2. H. Pylori: HgbA1c: Vitamin D: Smoking: Former smoker Primary care physician referral: donnie felder Psychiatry clearance: Cardiology clearance: Sleep study: Diet journal: VTE risk score: VTE risk level: Rehab needs at discharge:
== END ==
LOC: BARWHC3 13:49
PROVIDERS: ATTEND Surgery
DX: E66.01 Morbid (severe) obesity due to excess calories (principal); Z09 Encounter for follow-up examination after completed treatment for conditions other than malignant neoplasm; K21.9 Gastro-esophageal reflux disease without esophagitis; M19.90 Unspecified osteoarthritis, unspecified site; I10 Essential (primary) hypertension; Z98.84 Bariatric surgery status; Z87.891 Personal history of nicotine dependence
CPT/HCPCS: 99211

== ENCOUNTER → 2023-01-16 | Outpatient (CLI) | payer MEDICARE ==
--- NOTE | 2023-01-16 15:01 | XR ---
EXAMINATION TYPE: XR ribs LT DATE OF EXAM: 01/16/2023 COMPARISON: 05/24/2021 HISTORY: 67-year-old female [id number] MULTI RIB FX, HORSE FALL INJURY TECHNIQUE: 4 views FINDINGS: There is a left band device noted. Cholecystectomy clips. Multiple old right-sided rib frac ture deformities partially visualized. Plate and screw fixation right clavicular shaft. There is a no ndisplaced fracture of the left anterolateral seventh rib. Some underlying opacity at the periphery o f the left base. IMPRESSION: 1. Nondisplaced fracture left anterolateral seventh rib. 2. Some underlying opacity at the periphery of the left base could represent trace effusion with arcelia cent atelectasis versus small pulmonary contusion. Clinically correlate.
== END | disposition home or self-care (01) ==
LOC: RADXRYALE 09:04
PROVIDERS: ATTEND Physician Assistant Medical
DX: S22.42XA Multiple fractures of ribs, left side, initial encounter for closed fracture (principal); R91.8 Other nonspecific abnormal finding of lung field; V80.010A Animal-rider injured by fall from or being thrown from horse in noncollision accident, initial encounter

== ENCOUNTER → 2023-07-01 | Outpatient (CLI) | payer MEDICARE ==
--- NOTE | 2023-07-01 12:08 | BD ---
EXAMINATION TYPE: Axial Bone Density DATE OF EXAM: 07/01/2023 CLINICAL HISTORY: 67 years old Female. ICD-10 CODE: M85.9 DISORDER OF BONE DENSITY A Height: 65 in Weight: 209 lbs FRAX RISK QUESTIONS: History of Fracture in Adulthood: rt ribs age 63, rt clavicle age 63, rt scapula age 63, lt ribs age 66 Secondary Osteoporosis: 3. Menopause before 44: partial hyst age 37 RISK FACTORS HISTORY OF: Surgery to Hip(left): hip replacement age 66 MEDICATIONS: EXAM MEASUREMENTS: Bone mineral densitometry was performed using the [facility]. Bone mineral density as measured about the Lumbar spine is: ----- L1-L4(G/cm2): 1.361 T Score Values are as follows: ----- L1: 0.9 ----- L2: 0.9 ----- L3: 1.3 ----- L4: 2.7 ----- L1-L4: 1.5 Z Score Values are as follows: ----- L1: 1.5 ----- L2: 1.6 ----- L3: 1.9 ----- L4: 3.4 ----- L1-L4: 2.2 Bone mineral density has: Increased 3.7% since study of: 04/02/2021 Bone mineral density about the R hip (g/cm2): 0.835 T Score values are as follows: -----R Neck: -1.5 -----R Total: -1.4 Z Score values are as follows: -----R Neck: -0.5 -----R Total: -0.7 Bone mineral density has: Decreased -5.1% since study of: 04/02/2021 FRAX%s: The graph provided illustrates a 14.6% chance for a major osteoporotic fx and a 1.8% chance f or the hips probability for fx in 10 years time. IMPRESSION: Osteopenia (T Score between -2.5 and -1). There is slightly increased risk of fracture and the patient may be considered for treatment. Re-Screen 2-5 years. NOTE: T-SCORE=SD OF THE YOUNG ADULT MEAN.
--- NOTE | 2023-07-02 09:51 | MM ---
Reason for Exam: Screening (asymptomatic). Last mammogram was performed 1 year(s) and 1 month(s) ago. Patient History: Menarche at age 9. First Full-Term at age 22. Hysterectomy at age 36. Postmenopausal. Patient has history of breast feeding. Estrogen for 3 years from age 54 until age 56. Maternal aunt had breast cancer, age 40. Mother had breast cancer, age 67. Risk Values: Mary 5 year model risk: 3.6%. NCI Lifetime model risk: 11.3%. Prior Study Comparison: 03/29/2019 Bilateral Diagnostic Mammogram, [facility]. 04/02/2021 Bilateral Screening Mammogram, [facility]. 06/07/2022 Bilateral MG 3D screening mammo w/cad, [facility]. Tissue Density: There are scattered areas of fibroglandular density. Findings: Analyzed By CAD. There is no suspicious group of microcalcifications or new suspicious mass in either breast. Benign calcifications noted. Overall Assessment: Benign, BI-RAD 2 Management: Screening Mammogram of both breasts in 1 year. . Patient should continue monthly self-breast exams. A clinical breast exam by your physician is recommended on an annual basis. This exam should not preclude additional follow-up of suspicious palpable abnormalities. Note on Mary scores and lifetime risk: 1. A Mary score greater than 3% is considered moderate risk. If this is the case, consider specialist referral to assess eligibility for a risk reducing agent. 2. If overall lifetime risk for the development of breast cancer is 20% or higher, the patient may qualify for future screening with alternating mammogram and breast MRI. Electronically signed and approved by: Colt Bryant M.D. Radiologis
== END | disposition home or self-care (01) ==
LOC: RADMAMWWP 07:45
PROVIDERS: ATTEND Family Medicine
DX: Z12.31 Encounter for screening mammogram for malignant neoplasm of breast (principal); M85.89 Other specified disorders of bone density and structure, multiple sites; Z80.3 Family history of malignant neoplasm of breast; Z78.0 Asymptomatic menopausal state
CPT/HCPCS: 77063; 77067; 77080

== ENCOUNTER → 2023-09-19 | Outpatient (CLI) | payer MEDICARE ==
--- NOTE | 2023-09-29 12:08 | CT ---
EXAMINATION TYPE: CT lumbar spine wo con CT DLP: 1202.30 mGycm, Automated exposure control for dose reduction was used. DATE OF EXAM: 09/19/2023 1:51 PM COMPARISON: . CLINICAL INDICATION:Female, 68 years old with history of M54.50 LOW BACK PAIN, UNSPECIFIED; PHH, BACK PAIN X YEARS TECHNIQUE: Multiple axial images were obtained from the midportion of T11 through the sacroiliac tonio nts. Soft tissue and bone windows in coronal and sagittal planes were obtained and reviewed. 3-D ref ormats of the bones were created on a separate workstation and submitted for review. Contrast used: mL of , (None, if empty). Oral contrast used: (None, if empty). FINDINGS: Alignment: There are 5 lumbar type vertebral bodies. There is 4 mm of anterolisthesis of L4 on L5. Ge neralized lordosis is present. Vertebral body heights are maintained. There is loss of disc height at L4-5. Remaining disc heights a re intact. Bone: No aggressive bone lesion. Hypertrophic facet joint osteoarthritis. Discs: T12-L1: No spinal canal or neural foraminal stenosis is identified. L1-L2: No spinal canal or neural foraminal stenosis is identified. L2-L3: No spinal canal or neural foraminal stenosis is identified. L3-L4: Severe facet joint hypertrophic change causing spinal canal and mild left neural foraminal miko nosis. L4-L5: No spinal canal or neural foraminal stenosis is identified. L5-S1: No spinal canal or neural foraminal stenosis is identified. Other: None IMPRESSION: 1. No evidence for spinal fracture. 2. Anterolisthesis of L4-L5. 3. Central canal and left neural foraminal stenosis at L3-L4 due to facet joint osteophytes.
== END | disposition home or self-care (01) ==
LOC: RADCTMAIN 13:31
PROVIDERS: ATTEND Physical Medicine & Rehabilitation
DX: M43.16 Spondylolisthesis, lumbar region (principal); M25.78 Osteophyte, vertebrae; M99.73 Connective tissue and disc stenosis of intervertebral foramina of lumbar region
CPT/HCPCS: 72131

== ENCOUNTER → 2024-05-04 | Outpatient (CLI) | payer MEDICARE ==
[2024-05-04 15:17] LABS: Blood Urea Nitrogen 15.2 mg/dL (9.0-27.0); Carbon Dioxide 25.6 mmol/L (21.6-31.8); Chloride 106 mmol/L (96-109); Potassium 3.9 mmol/L (3.5-5.5); Sodium 142 mmol/L (135-145)
[2024-05-04 15:40] LABS: Basophils # (A) 0.05 X 10*3/uL (0.00-0.10); Basophils % (A) 0.8 %; Eosinophils # (A) 0.25 X 10*3/uL (0.04-0.35); Eosinophils % (A) 3.8 %; HCT 45.4 % (37.2-46.3); HGB 14.8 g/dL (12.0-15.0); Immature Platelet Fraction 11.6 % (1.1-6.1); Lymphocytes # (A) 1.89 X 10*3/uL (0.90-5.00); Lymphocytes % (A) 28.8 %; MCH 28.9 pg (27.0-32.0); MCHC 32.6 g/dL (32.0-37.0); MCV 88.7 FL (80.0-97.0); Mean Platelet Volume 9.8 FL (9.5-12.2); Monocytes # (A) 0.47 X 10*3/uL (0.20-1.00); Monocytes % (A) 7.2 %; NRBC Per 100 WBC 0 X 10*3/uL (0.00-0.01); Neutrophils # (A) 3.87 X 10*3/uL (1.80-7.70); Neutrophils % (A) 58.9 %; RBC 5.12 X 10*6/uL (4.10-5.20); RBC Morphology Normal (Normal); RDW 14.6 % (11.5-14.5); WBC 6.56 X 10*3/uL (4.50-10.00)
== END | disposition home or self-care (01) ==
LOC: LABWHC1 09:36
PROVIDERS: ATTEND Obstetrics & Gynecology
DX: Z01.818 Encounter for other preprocedural examination (principal); N81.10 Cystocele, unspecified
CPT/HCPCS: 36415; 80051; 82565; 84520; 85025; 86850; 86900; 86901; 87086; 93005

== ENCOUNTER → 2024-05-07 | Outpatient (CLI) | payer MEDICARE ==
[2024-05-07 13:27] LABS: Basophils % (A) 0 %; Eosinophils # (A) 0.2 k/uL (0-0.7); Eosinophils % (A) 2 %; Lymphocytes # (A) 1.5 k/uL (1.0-4.8); Lymphocytes % (A) 21 %; MCH 30.1 pg (25.0-35.0); MCHC 33.6 g/dL (31.0-37.0); MCV 89.6 fL (80.0-100.0); Mean Platelet Volume 10.3; Monocytes # (A) 1.8 k/uL (0-1.0); Monocytes % (A) 24 %; Neutrophils # (A) 3.9 k/uL (1.3-7.7); Neutrophils % (A) 52 %; RDW 14.1 % (11.5-15.5)
[2024-05-07 13:59] LABS: HGB 14.2 gm/dL (11.4-16.0); RBC 4.66 m/uL (3.80-5.40); WBC 9.3 k/uL (3.8-10.6)
[2024-05-07 14:02] LABS: Platelet Count 210 k/uL (150-450)
== END | disposition home or self-care (01) ==
LOC: LABPAT 12:59
PROVIDERS: ATTEND Obstetrics & Gynecology
DX: Z01.812 Encounter for preprocedural laboratory examination (principal); N81.10 Cystocele, unspecified
CPT/HCPCS: 85025

== ENCOUNTER 2024-05-10 05:34 | Day surgery (SDC) | payer MEDICARE ==
[2024-05-10] MEDS: IV FLUID CONTINUATION 1,000 ML IV ONE ×2 (06:36)
[2024-05-10] MEDS: LACTATED RINGERS 1,000 ML IV SCH (06:47)
[2024-05-10] MEDS: MIDAZOLAM 2 MG/2 ML VIAL IV PRN (06:50)
[2024-05-10] MEDS: ONDANSETRON 4 MG/2 ML VIAL IVP ONE (06:57)
[2024-05-10] MEDS: DEXAMETHASONE SOD PHOSPHATE 4 MG/ML 1 ML VIAL IV ONE (06:57)
[2024-05-10] MEDS ORDERED: HYDROmorphone 0.5 MG/0.5 ML SYRINGE IVP PRN (07:00)
[2024-05-10] MEDS ORDERED: NEOSTIGMINE 1 MG/ML 10 ML VIAL ONE (07:29)
[2024-05-10] MEDS ORDERED: PROPOFOL 10 MG/ML 20 ML VIAL IV ONE (07:29)
[2024-05-10] MEDS ORDERED: ROCURONIUM 10 MG/ML (5 ML VIAL) IV ONE (07:29)
[2024-05-10] MEDS ORDERED: SUCCINYLCHOLINE CHLORIDE 200 MG/10 ML VIAL IV ONE (07:29)
[2024-05-10] MEDS ORDERED: PHENYLEPHRINE-0.9% NACL SYG 1,000 MCG/10 ML SYRINGE ONE (07:29)
[2024-05-10] MEDS ORDERED: diphenhydrAMINE 50 MG/ML 1 ML VIAL ONE (07:29)
[2024-05-10] MEDS ORDERED: GLYCOPYRROLATE 0.2 MG/ML 2 ML VIAL ONE (07:29)
[2024-05-10] MEDS ORDERED: MORPHINE SULFATE (PF) 0.3 MG/0.3 ML SYR ONE (07:29)
[2024-05-10] MEDS ORDERED: LIDOCAINE 1% INJ 10MG/ML (20 ML MDV) ONE (07:29)
[2024-05-10] MEDS ORDERED: fentaNYL (PF) 50 MCG/ML 2 ML AMP ONE (07:29)
--- NOTE | 2024-05-10 07:34 | P.ANPRN ---
Procedure Note - Anesthesia - Epidural/Spinal Spinal Time Out Performed: Yes Date of Procedure: 05/10/24 Procedure Start Time: 06:49 Procedure Stop Time: 06:57 Location of Patient: PreOp Indication: Acute Post-Operative Pain Sedation Type: Sedate with meaningful contact maintained Preparation: Sterile Prep Position: Sitting Needle Guage: 25 Blood Aspirated: Yes Pain Paresthesia on Injection Noted: Yes Events: Uneventful and Well Tolerated (Duramorph 300 mcg and fentanyl 25 mcg injected intrathecally)
[2024-05-10] MEDS: ESTRADIOL 0.1 MG/GM VAGINAL CREAM 42.5 GM TUBE VAGINAL ONE ×2 (07:53→08:21)
[2024-05-10] MEDS: VASOPRESSIN 20 UNIT/ML 1 ML VIAL SQ ONE (07:53)
--- NOTE | 2024-05-10 08:29 | P.HPOB ---
History of Present Illness H&P Date: 05/10/24 Chief Complaint: Grade 3 Cystocele Ms. Otero is a 68 year old with Grade 3 Cystocele who presents for surgical management. Past Medical History Past Medical History: Fibromyalgia, GERD/Reflux, Musculoskeletal Disorder, Osteoarthritis (OA) Additional Past Medical History / Comment(s): Hx white coat syndrome causes HTN; Fell off horse 2017 w/ broken ribs, fx clavicle, & punctured lung History of Any Multi-Drug Resistant Organisms: None Reported Past Surgical History: Bariatric Surgery, Bladder Surgery, Cholecystectomy, Hernia Repair, Hysterectomy, Joint Replacement, Orthopedic Surgery Additional Past Surgical History / Comment(s): bladder suspension, abd hernia repair w/ lap band (2004), lasik eye sx, ORIF clavicle surgery with renetta, left hip replaced Past Anesthesia/Blood Transfusion Reactions: Previous Problems w/ Anesthesia, Motion Sickness Additional Past Anesthesia/Blood Transfusion Reaction / Comment(s): During clavicle surg she woke up with tube in her throat and they had to restrain her. Claustrophobic Additional Drug Use History / Comment(s): occ marijuana gummy for pain - Past Family History Mother Family Medical History: Cancer Additional Family Medical History / Comment(s): breast cancer Father Family Medical History: No Reported History Additional Family Medical History / Comment(s): when pt was young from a mva Brother(s) Family Medical History: Myocardial Infarction ([place]) Medications and Allergies Home Medications Medication Instructions Recorded Confirmed Type Gabapentin [Neurontin] 600 mg PO BID 03/02/19 05/10/24 History Venlafaxine HCl ER [Effexor Xr] 75 mg PO DAILY 03/02/19 05/10/24 History Pnv No.95/Ferrous Fum/Folic AC 1 tab PO DAILY 05/18/21 05/10/24 History [ Multivitamin Tablet] methocarbamoL [Robaxin] 750 mg PO HS 05/18/21 05/10/24 History Omeprazole 40 mg PO HS 06/17/22 05/10/24 History Cholecalciferol [Vitamin D3 (25 4 tab PO DAILY 05/06/24 05/10/24 History Mcg = 1000 Iu)] HYDROcodone/APAP 5-325MG [[place] 1 tab PO Q8H PRN 05/06/24 05/10/24 History 5-325] Ibuprofen [Motrin] 800 mg PO DIRECTED PRN 05/06/24 05/10/24 History Allergies Allergy/AdvReac Type Severity Reaction Status Date / Time No Known Allergies Allergy Verified 05/10/24 06:20 Exam Vital Signs Temp Pulse Resp BP Pulse Ox 05/10/24 06:59 78 14 146/83 96 05/10/24 06:24 97.1 F L 86 14 155/82 96 Intake and Output 05/09/24 05/10/24 05/10/24 22:59 06:59 14:59 Intake Total 200 550 Output Total 75 Balance 200 475 Intake: IV 200 550 Output: Urine 50 Estimated Blood Loss 25 Other: Weight 94.8 kg Focused physical exam is performed. This is a healthy-appearing female in no apparent distress. Breathing is non-labored. Abdomen is soft and non-tender. Extremities non-tender and non-edematous. Assessment and Plan Assessment: 68 year old presenting for surgical management of Grade 3 Cystocele Plan: Risks, benefits, and alternatives to Anterior Repair are discussed with the patient including bleeding, infection, bladder injury, and post-operative VTE. The patient understands these risks and desires to proceed with surgery as discussed. All questions are answered.
[2024-05-10] MEDS ORDERED: SIMETHICONE 80 MG CHEWABLE PO PRN (08:31)
--- NOTE | 2024-05-10 08:31 | P.OP ---
Date of Procedure: 05/10/24 Preoperative Diagnosis: 1. Grade 3 Cystocele Postoperative Diagnosis: 1. Grade 3 Cystocele 2. Grade 2 Enterocele Procedure(s) Performed: Anterior repair and enterocele repair Implants: None Anesthesia: CRISTIAN Surgeon: Serina Lees Manifold Builder #1: Nilsa Bassett Estimated Blood Loss (ml): 25 IV fluids (ml): 500 Urine output (ml): 50 (clear yellow) Pathology: none sent Condition: stable Disposition: floor Indications for Procedure: Ms. Otero is a 68 year old with Grade 3 Cystocele presenting for Anterior Repair. Risks, benefits, and alternatives are discussed with the patient including risk of bleeding, infection, bladder injury, and post-operative VTE. She understands these risks and desires to proceed with surgery as discussed. All questions are answered. Operative Findings: Grade 3 Cystocele and Grade 2 enterocele noted Description of Procedure: Prior to the beginning of the procedure the team paused to verify the patient's identity, as well as the procedure to be performed and the correct side/site. All equipment required was ready and available. The patient was positioned appropriately. Patient was cleaned and draped and legs were placed in lithotomy position using Vance stirrups. Marshall catheter was placed to drain the bladder. A weighted speculum was placed in the posterior vaginal vault. Two Allis Clamps were used to grasp the vaginal mucosa along the vaginal cuff and Pitressin was injected inferior to the vaginal epithelium as a means for hydro-dissection. A horizontal incision was made in between the Allis clamps with the scalpel. A vertical midline incision was then made with Metzenbaum scissors from the level of the cuff to 1 cm inferior to the urethra. The underlying endopelvic fascia and cystocele was then dissected away from the vaginal epithelium using Metzenbaum scissors and allis clamps for retraction. The dissection was carried out to the lateral pelvic side wall on either side. 2-0 Vicryl was placed to approximate the endopelvic fascia over the cystocele and enterocele, thus reducing it. Excess vaginal musosa was trimmed and the remaining vaginal mucosa was closed with 2-0 Vicryl suture. After completion of the case, a marshall catheter was inserted and noted to move freely into the urethra without tension. Clear urine was noted to drain from the catheter. Excellent hemostasis was noted at the end of the case. The vagina was packed with 1-inch iodoform packing coated in vaginal estrace cream. All instruments were removed from the patient. She was cleaned, dried, and awakened from anesthesia without difficulty. Sponge, lap, instrument, and needle counts were correct x2. She was taken to the PACU in stable condition.
[2024-05-10] MEDS: ACETAMINOPHEN TAB 500 MG TAB PO SCH (10:29)
[2024-05-10] MEDS: NALBUPHINE 10 MG/ML (10 ML MDV) IV PRN (10:30)
[2024-05-10] MEDS: IBUPROFEN 800 MG TAB PO SCH (13:32)
[2024-05-10 16:16] VITALS: RESP 16
[2024-05-10] MEDS: IPRATROPIUM-ALBUTEROL 3 ML NEB INHALATION STA (18:25)
--- NOTE | 2024-05-10 19:24 | XR ---
EXAMINATION TYPE: XR chest 2V DATE OF EXAM: 05/10/2024 6:51 PM COMPARISON: Chest radiographs from 01/16/2022. CLINICAL INDICATION: Female, 68 years old with history of new onset shortness of breath post surgery; [facility] TECHNIQUE: XR chest 2V Frontal and lateral views of the chest. FINDINGS: Lungs/Pleura: There is no evidence of pleural effusion, focal consolidation, or pneumothorax. Pulmonary vascularity: Unremarkable. Heart/mediastinum: Cardiomediastinal silhouette is unremarkable. Musculoskeletal: No acute osseous pathology. Multiple right-sided rib deformities. Right clavicle fix ation plate. Gastric lap band appears in satisfactory position. IMPRESSION: No acute cardiopulmonary disease/process. [facility], , 05/10/2024 7:22 PM
[2024-05-11 06:04] LABS: Basophils % (A) 0 %; Eosinophils # (A) 0.1 k/uL (0-0.7); Eosinophils % (A) 0 %; HGB 13.4 gm/dL (11.4-16.0); Lymphocytes # (A) 1.4 k/uL (1.0-4.8); Lymphocytes % (A) 13 %; MCH 30.3 pg (25.0-35.0); MCHC 33.4 g/dL (31.0-37.0); MCV 90.9 fL (80.0-100.0); Mean Platelet Volume 14.3; Monocytes # (A) 1.5 k/uL (0-1.0); Monocytes % (A) 14 %; Neutrophils # (A) 7.5 k/uL (1.3-7.7); Neutrophils % (A) 70 %; RBC 4.41 m/uL (3.80-5.40); RDW 13.5 % (11.5-15.5); WBC 10.7 k/uL (3.8-10.6)
[2024-05-11 07:44] LABS: Platelet Count 184 k/uL (150-450)
[2024-05-11 08:45] VITALS: BP 125/60; PULSE 69; TEMP 97.3
--- NOTE | 2024-05-11 08:57 | P.PN ---
Progress Note - Text Progress Note Date: 05/11/24 68 yo female s/p Anterior posterior repair with intrathecal duramorph VSS No events overnight mild pruritis No pain No motor or sensory deficits. Tolerating diet Ambulating well Patient Ok for D/C from anesthesia standpoint
--- NOTE | 2024-05-11 09:14 | P.DS ---
Providers Date of admission: 05/11/2024 Expected date of discharge: 05/11/24 Attending physician: Serina Lees MD [facility] Course: Ms. Otero is a 68 year old female POD#1 s/p anterior repair and enterocele repair for pelvic organ prolapse. The patient is doing well this morning and had no acute events overnight. She has no complaints this morning. She reports minimal lochia, passing flatus, voiding without difficulty, ambulating, and eating/drinking without nausea or vomiting. She denies chest pain, shortness of breathing, fevers, or chills overnight. She denies pain or swelling in the legs. Postoperative restrictions are reviewed with the patient including pelvic rest for 6 weeks, no lifting heavier than 15 pounds for 6 weeks. The patient is encouraged to call the office if she experiences any heavy bleeding, foul- smelling discharge, or any if she has any other concerns. She will follow up in the office with in 6 weeks for postoperative exam. She plans to use Motrin OTC as needed for pain. All questions are answered. Patient Condition at Discharge: Good Plan - Discharge Summary Discharge Rx Participant: Yes New Discharge Prescriptions: No Action Venlafaxine HCl ER [Effexor Xr] 75 mg PO DAILY Gabapentin [Neurontin] 600 mg PO BID methocarbamoL [Robaxin] 750 mg PO HS Omeprazole 40 mg PO HS Ibuprofen [Motrin] 800 mg PO DIRECTED PRN PRN Reason: Pain Pnv No.95/Ferrous Fum/Folic AC [ Multivitamin Tablet] 1 tab PO DAILY HYDROcodone/APAP 5-325MG [[place] 5-325] 1 tab PO Q8H PRN PRN Reason: Pain Cholecalciferol [Vitamin D3 (25 Mcg = 1000 Iu)] 4 tab PO DAILY Discharge Medication List Gabapentin [Neurontin] 600 mg PO BID 03/02/19 [History] Venlafaxine HCl ER [Effexor Xr] 75 mg PO DAILY 03/02/19 [History] Pnv No.95/Ferrous Fum/Folic AC [ Multivitamin Tablet] 1 tab PO DAILY 05/18/21 [History] methocarbamoL [Robaxin] 750 mg PO HS 05/18/21 [History] Omeprazole 40 mg PO HS 06/17/22 [History] Cholecalciferol [Vitamin D3 (25 Mcg = 1000 Iu)] 4 tab PO DAILY 05/06/24 [History] HYDROcodone/APAP 5-325MG [[place] 5-325] 1 tab PO Q8H PRN 05/06/24 [History] Ibuprofen [Motrin] 800 mg PO DIRECTED PRN 05/06/24 [History] Follow up Appointment(s)/Referral(s): Serina Lees MD [STAFF PHYSICIAN] - 6 Weeks Activity/Diet/Wound Care/Special Instructions: Postoperative Instructions 1. No heavy lifting or straining (exercising) until after 6 week checkup. 2. Do not resume sexual relations for 6 weeks or longer if uncomfortable. 3. Keep any areas repaired with stitches clean and dry. 4. Call the office, , within the next week to make appointment for your 2 week checkup 5. Report any of the following occurrences to the doctor promptly: a. Heavy, excessive bleeding b. Chills, fever c. Burning or frequency of urination d. Pain or redness around the incisions Discharge Disposition: HOME SELF-CARE
== END 2024-05-11 10:32 | disposition home or self-care (01) ==
LOC: OR 05:34 → 4FBP 08:22 → OR 05-11 10:32
PROVIDERS: ATTEND Obstetrics & Gynecology
DX: N81.10 Cystocele, unspecified (principal); G89.18 Other acute postprocedural pain
CPT/HCPCS: 94640; 71046; 57240; J2250; J1100; J2300; J0690; J2405; 85025

== ENCOUNTER → 2024-11-10 | Outpatient (CLI) | payer MEDICARE ==
--- NOTE | 2024-11-10 14:59 | MM ---
Reason for Exam: Screening (asymptomatic). Last mammogram was performed 1 year(s) and 4 month(s) ago. Patient History: Menarche at age 9. First Full-Term at age 22. Hysterectomy at age 36. Postmenopausal. Patient has history of breast feeding. Estrogen for 3 years from age 54 until age 56. Maternal aunt had breast cancer, age 40. Mother had breast cancer, age 67. Risk Values: Mary 5 year model risk: 3.6%. NCI Lifetime model risk: 10.4%. Prior Study Comparison: 04/02/2021 Bilateral Screening Mammogram, [facility]. 06/07/2022 Bilateral MG 3D screening mammo w/cad, [facility]. 07/01/2023 Bilateral MG 3D screening mammo w/cad, [facility]. Tissue Density: There are scattered areas of fibroglandular density. Findings: Analyzed By CAD. Chronic subareolar nodularity on the left. There is no suspicious group of microcalcifications or new suspicious mass in either breast. Overall Assessment: Benign, BI-RAD 2 Management: Screening Mammogram of both breasts in 1 year. See note below in regards to the patient's increased 5 year Mary score. Patient should continue monthly self-breast exams. A clinical breast exam by your physician is recommended on an annual basis. This exam should not preclude additional follow-up of suspicious palpable abnormalities. Note on Mary scores and lifetime risk: 1. A Mary score greater than 3% is considered moderate risk. If this is the case, consider specialist referral to assess eligibility for a risk reducing agent. 2. If overall lifetime risk for the development of breast cancer is 20% or higher, the patient may qualify for future screening with alternating mammogram and breast MRI. [facility], , 11/10/2024 2:56 PM. Electronically signed and approved by: Lorrie Rico M.D. Radiologist
== END | disposition home or self-care (01) ==
LOC: RADMAMWWP 09:01
PROVIDERS: ATTEND Family Medicine
DX: Z12.31 Encounter for screening mammogram for malignant neoplasm of breast (principal); R92.323 Mammographic fibroglandular density, bilateral breasts; Z78.0 Asymptomatic menopausal state; Z80.3 Family history of malignant neoplasm of breast
CPT/HCPCS: 77063; 77067